=== PATIENT | female | born 1950 | race Caucasian/White ===

== ENCOUNTER → 2018-11-21 11:43 | Outpatient (CLI) | payer OTHER, SELFPAY ==
--- NOTE | 2018-11-21 | DI.MG.S_ITS ---
BILATERAL DIGITAL SCREENING MAMMOGRAM 3D/2D WITH CAD: 11/21/2018 CLINICAL: Routine screening. Family history of breast cancer. Comparison is made to exams dated: 07/29/2016 mammogram, 07/28/2015 mammogram - [facility], and 01/30/2004 mammogram - [facility]. The tissue of both breasts is heterogeneously dense. This may lower the sensitivity of mammography. Current study was also evaluated with a Computer Aided Detection (CAD) system. No significant masses, calcifications, or other findings are seen in either breast. There has been no significant interval change. IMPRESSION: NEGATIVE There is no mammographic evidence of malignancy. A 1 year screening mammogram is recommended. This exam was interpreted at Station ID: [id number]. NOTE: For mammograms, a report in lay terms will be sent to the patient. Approximately 15% of breast malignancies will not be visualized mammographically. In the management of a palpable breast mass, a negative mammogram must not discourage biopsy of a clinically suspicious lesion. Electronically Signed By: Norman marroquin/cathie:11/21/2018 13:42:48 letter sent: Normal Exam ACR BI-RADS Category 1: Negative [id number]
== END ==
PROVIDERS: Visit Provider Family Medicine
DX: Z12.31 Encounter for screening mammogram for malignant neoplasm of breast (principal); Z80.3 Family history of malignant neoplasm of breast
CPT/HCPCS: 77063; 77067

== ENCOUNTER → 2020-04-20 10:59 | Outpatient (CLI) | payer MEDICARE, OTHER, SELFPAY ==
--- NOTE | 2020-04-20 | DI.RAD.S_ITS ---
PROCEDURE: XR KNEE RT 3V INDICATIONS: RIGHT KNEE PAIN,HISTORY OF TOTAL RIGHT KNEE REPLACEMENT TECHNIQUE: 3 views of the knee were acquired. COMPARISON: [facility], , KNEE 1-2 VIEWS RIGHT, 11/01/2016, 17:15. FINDINGS: Bones: No fractures or dislocations. No suspicious bony lesions. Status post right knee arthroplasty. Expected postop alignment. The hardware appears intact. No evidence of hardware loosening. Soft tissues: No joint effusion. No suspicious soft tissue calcifications. IMPRESSION: Expected postoperative alignment Dictated by: Thiago Freeman M.D. on 04/20/2020 at 13:48 Approved by: Thiago Freeman M.D. on 04/20/2020 at 13:50
== END ==
PROVIDERS: Referring Provider Family Medicine; Visit Provider Family Medicine
DX: M25.561 Pain in right knee (principal); G89.29 Other chronic pain; Z96.651 Presence of right artificial knee joint
CPT/HCPCS: 73562

== ENCOUNTER → 2020-09-16 11:48 | Outpatient (CLI) | payer MEDICARE, OTHER, SELFPAY ==
--- NOTE | 2020-09-16 | DI.MG.S_ITS ---
BILATERAL DIGITAL SCREENING MAMMOGRAM 3D/2D WITH CAD: 09/16/2020 CLINICAL: Routine screening. Family history of breast cancer. Comparison is made to exams dated: 11/21/2018 mammogram, 08/18/2016 mammogram, 07/29/2016 mammogram, and 07/28/2015 mammogram - [facility]. The tissue of both breasts is heterogeneously dense. This may lower the sensitivity of mammography. Current study was also evaluated with a Computer Aided Detection (CAD) system. There are benign post operative findings in the right breast. No significant masses, calcifications, or other findings are seen in either breast. There has been no significant interval change. IMPRESSION: BENIGN There is no mammographic evidence of malignancy. A 1 year screening mammogram is recommended. This exam was interpreted at Station ID: [id number]. NOTE: For mammograms, a report in lay terms will be sent to the patient. Approximately 15% of breast malignancies will not be visualized mammographically. In the management of a palpable breast mass, a negative mammogram must not discourage biopsy of a clinically suspicious lesion. Electronically Signed By: Norman marroquin/cathie:09/16/2020 12:53:49 letter sent: Normal Exam ACR BI-RADS Category 2: Benign Finding(s) 3342F
--- NOTE | 2020-09-16 | DI.RAD.S_ITS ---
PROCEDURE: XR HIP W PEL IF DONE LT 2V INDICATIONS: LEFT HIP PAIN TECHNIQUE: AP pelvis with lateral view(s) of the left hip(s). COMPARISON: None. FINDINGS: Bones: No fractures or dislocations. Pelvic ring appears intact. No suspicious bony lesions. Soft tissues: The visualized bowel gas pattern is normal. No suspicious soft tissue calcifications. IMPRESSION: Mild asymmetric hip joint osteoarthritis, slightly greater on the left than the right. No trauma. Dictated by: Anthony Patel M.D. on 09/16/2020 at 14:16 Approved by: Anthony Patel M.D. on 09/16/2020 at 14:16
== END ==
PROVIDERS: PCP Family Medicine; Referring Provider Family Medicine; Visit Provider Family Medicine
DX: Z12.31 Encounter for screening mammogram for malignant neoplasm of breast (principal); Z80.3 Family history of malignant neoplasm of breast; M25.552 Pain in left hip; M16.0 Bilateral primary osteoarthritis of hip
CPT/HCPCS: 73502; 77063; 77067

== ENCOUNTER → 2021-02-24 14:03 | Outpatient (CLI) | payer MEDICARE, OTHER, SELFPAY ==
--- NOTE | 2021-02-24 | DI.US.S_ITS ---
PROCEDURE: US PELVIC COMPLETE INDICATIONS: Vaginal bleeding TECHNIQUE: Real-time scanning was performed of the pelvic organs, with image documentation. Additional endovaginal scanning was necessary due to incomplete visualization of the adnexal and endometrial structures by transabdominal scanning. COMPARISON: None. FINDINGS: Uterus: Uterus is normal in size at 4.4 x 3.5 x 4.1 cm. The endometrium measures 11 mm in combined thickness. Trace endometrial fluid. 2 subserosal fibroids, largest measuring 12 mm. Ovaries: Ovaries not identified. No adnexal masses seen. Other: No pathologic free abdominal or pelvic fluid. IMPRESSION: 1. Abnormal thickening of the endometrial complex. Endometrial neoplastic process cannot be excluded and endometrial biopsy is recommended. 2. Two subserosal fibroids. Dictated by: Luis Manuel [place] Interpreted: Clayton Erazo MD on 02/24/2021 at 16:30 Transcribed by: QUYEN on 02/24/2021 at 16:32 Approved by: Clayton Erazo M.D. on 02/24/2021 at 18:05
== END ==
PROVIDERS: PCP Family Medicine; Referring Provider Nurse Practitioner Family; Visit Provider Nurse Practitioner Family
DX: N93.9 Abnormal uterine and vaginal bleeding, unspecified (principal); D25.2 Subserosal leiomyoma of uterus; R93.89 Abnormal findings on diagnostic imaging of other specified body structures; M85.851 Other specified disorders of bone density and structure, right thigh; Z78.0 Asymptomatic menopausal state; E07.9 Disorder of thyroid, unspecified; Z51.81 Encounter for therapeutic drug level monitoring
CPT/HCPCS: 76830; 76856; 77080

== ENCOUNTER → 2021-04-13 09:13 | Outpatient (CLI) | payer MEDICARE, OTHER, SELFPAY ==
[2021-04-13 10:39] LABS: COVID19 -Nasal RAPID Negative (Negative)
== END ==
PROVIDERS: PCP Family Medicine; Visit Provider Obstetrics & Gynecology
DX: Z01.812 Encounter for preprocedural laboratory examination (principal); Z20.822 Contact with and (suspected) exposure to COVID-19
CPT/HCPCS: 87635

== ENCOUNTER 2021-04-13 09:50 | Day surgery (SDC) | payer MEDICARE, OTHER, SELFPAY ==
[2021-04-07 12:15] VITALS: BMI 25.3
--- NOTE | 2021-04-13 | PATH_ITS ---
[facility] Accession Number: [id number] . 01 Material submitted: . endometrium - ENDOMETRIAL CURETTINGS . 02 Diagnosis: Endometrium, Curettings: Scant superficial endometrial strips. No evidence of neoplasia or hyperplasia. MRV 04/15/2021 1240 Local . 02 Electronically signed: . Sharri Hernandez MD, Pathologist NPI- [id number] . 01 Gross description: . ENDOMETRIAL CURETTINGS: Received in formalin are multiple fragment(s) of waite, soft tissue measuring 2.5 x 1.1 x 0.4 cm in aggregate submitted entirely in 1 cassette(s) /JUAN 04/14/2021 0434 Local . 02 Pathologist provided ICD-10: N88.2 . 02 CPT . 659144 Performed at: 01 [facility] [address] [id number] MD Harry Barker MD Phone: [phone] Performed at: 02 [facility] [address] [place] [id number] MD Sharri Hernandez MD Phone: [phone]
[2021-04-13 10:35] VITALS: BP 140/72; PULSE 61; RESP 12; TEMP 36.1; O2SAT 100; BMI 25.3
[2021-04-13] MEDS: LACTATED RINGERS 1,000 ML 42 ML IV (10:45)
--- NOTE | 2021-04-13 12:51 | P.HP_ITS ---
History of Present Illness History of Present Illness Date Patient Seen: 04/13/21 Time Patient Seen: 12:51 Chief complaint: [facility] [place] Narrative: Patient is a 70-year-old 1 para 0 who presents for a D&C hysteroscopy with possible polypectomy versus fibroid resection due to postmenopausal bleeding and endometrial hyperplasia. Attempted endometrial biopsy in the office but due to cervical stenosis was unsuccessful. Patient History Surgical History (Updated 03/15/21 @ 18:05 by Danielle Bender MD) H/O tubal ligation History of total right knee replacement S/P appendectomy S/P T&A (status post tonsillectomy and adenoidectomy) Family & Social History Social History: household members none Tobacco & Substance use: Smoking Status Never smoker alcohol intake current alcohol intake frequency a few times a month Substance Use Type does not use Meds Home Medications and Allergies Home Medications Medication Instructions Recorded Confirmed Type lisinopril 2.5 mg tablet 2.5 mg PO QDAY #90 tab 06/13/16 04/07/21 Rx aspirin 81 mg tablet,delayed 81 mg PO BID #90 11/02/16 04/07/21 Rx release estradiol 0.5 mg tablet 0.5 mg PO DAILY 03/04/21 04/07/21 History levothyroxine 50 mcg tablet 75 mcg PO QAM tab 03/04/21 04/07/21 History Allergies Allergy/AdvReac Type Severity Reaction Status Date / Time No Known Drug Allergies Allergy Verified 04/13/21 08:13 Exam Vital Signs (past 8 hours): - 04/13/21 10:35 Temperature 97 F L Pulse Rate 61 Respiratory Rate 12 Blood Pressure 140/72 Pulse Oximetry 100 Oxygen Delivery Method Room Air Narrative Exam Narrative: HEENT: No thyromegaly, no anterior cervical or supraclavicular lymphadenopathy. Lungs:Clear to auscultation bilaterally, no wheezes. Cardiovascular: Regular rate and rhythm, no murmurs, rubs, or gallops. Abdomen: Well healed scars. No hepatosplenomegaly. No masses palpable. External genitalia: Normal Vagina: Normal Cervix: Nulliparous, stenotic Bimanual exam: 6 Week size uterus. Mobile. Assessment & Plan Assessment & Plan narrative: Assessment: 70 year old with postmenopausal bleeding, endometrial hyperplasia, and cervical stenosis Plan: D&C hysteroscopy with possible resection of mass The risks, benefits, and alternatives to the procedure were explained to the patient. The risks including bleeding, infection, and uterine perforation. She understands these risks and agrees to proceed. A full par Q was held and consent form was signed. COVID-19 COVID-19 status: Negative Result date/Date tested (Pos, Neg/Pending): 04/13/21 Time Spent With Patient Time with patient: less than 15 minutes
--- NOTE | 2021-04-13 13:00 | PM.PREOP ---
Pre-operative Note COVID-19 COVID-19 status: Negative Result date/Date tested (Pos, Neg/Pending): 04/13/21 Interval Note History & Physical reviewed/Exam performed by Physician: Yes Changes to H&P: No H&P completed within 30 days and has changed as indicated here:: 04/13/21
--- NOTE | 2021-04-13 13:29 | SUR.OPER ---
Lithotomy on padded OR bed, head on pillow, arms secured on padded arm boards at <90 degrees abduction. Legs secured in padded yellow fins stirrups.
--- NOTE | 2021-04-13 13:48 | P.OP_ITS ---
Operative Date/Time/Diagnoses Date of procedure: 04/13/21 Time of procedure: 13:48 Pre-op diagnosis: Postmenopausal bleeding Endometrial hyperplasia Cervical stenosis Post-op diagnosis: same Procedure & Clinicians Procedure: Procedures Operation Date: 04/13/21 11:45 Actual Procedure Side Surgeon p Hysteroscopy D&C Danielle Bender MD Indications: Postmenopausal bleeding Cervical stenosis Endometrial hyperplasia Surgeon: Danielle Bender Anesthesia Type: General (LMA) Operative Notes Findings: 7 week size anteverted uterus Both fallopian tube ostia observed No fibroids or polyps seen Stenotic cervix Closure Type: not applicable Specimen(s): endometrial curettings Estimated blood loss (mL): 5 Blood products transfused: none Procedure in detail: After informed consent was obtained, the patient was taken to the operating room where she was placed in the dorsal supine position. After adequate LMA general anesthesia was achieved, she was placed in the dorsal lithotomy position, and prepped and draped in the usual sterile fashion. A time-out was performed. A Lois speculum was placed into the vagina. A single-tooth tenaculum was placed on the anterior lip of the cervix. Using the gold handled dilators the cervix was sequentially dilated to the largest dilator which was # 5. Then the using the Hegar dilators the cervix was dilated to the # 8 Hegar dilator. The hysteroscope passed easily into the endometrial cavity. Both fallopian tube ostia were observed. There were no polyps were seen. Towards the left fallopian tube ostia there were some small whitened areas that might have been some submucosal fibroids. The hysteroscope was removed from the uterus. Sharp curettage was performed including the area of the left cornua. A large amount of curettings were obtained. The curette was removed from the [place] linda. The single-tooth tenaculum was removed from the anterior lip of the cervix. The speculum was removed from the vagina. Sponge, lap, and instrument counts were correct x2. The patient tolerated the procedure well, and was taken to PACU in stable condition. Complications: none Post-operative Condition: stable Disposition: PACU Plan for aftercare: Home after recovery
[2021-04-13 13:55] VITALS: BP 119/69; PULSE 45; RESP 12; TEMP 36.2; O2SAT 100
[2021-04-13 14:00] VITALS: BP 119/59; PULSE 44; RESP 14; O2SAT 100
[2021-04-13 14:05] VITALS: BP 126/64; PULSE 60; RESP 16; O2SAT 99
[2021-04-13 14:10] VITALS: BP 139/71; PULSE 59; RESP 14; TEMP 36.6; O2SAT 99
[2021-04-13] MEDS: ACETAMINOPHEN 325 MG TABLET 650 MG PO (14:38)
[2021-04-13 14:40] VITALS: BP 108/70; PULSE 69; RESP 16; TEMP 36.7; O2SAT 98
== END 2021-04-13 14:45 | disposition home or self-care (01) ==
PROVIDERS: PCP Family Medicine; Referring Provider Obstetrics & Gynecology; Visit Provider Obstetrics & Gynecology
PROC: 0UDB8ZZ Extraction of Endometrium, Via Natural or Artificial Opening Endoscopic (ICD-10-PCS; CPT 58558; principal; 2021-04-13 11:45)
DX: N88.2 Stricture and stenosis of cervix uteri (principal); Z01.812 Encounter for preprocedural laboratory examination; Z20.822 Contact with and (suspected) exposure to COVID-19
CPT/HCPCS: 58558; 87635; J1100; J1885; J2250; J2405; J2704; J3010

== ENCOUNTER → 2021-09-23 12:16 | Outpatient (CLI) | payer MEDICARE, OTHER, SELFPAY ==
--- NOTE | 2021-09-23 12:17 | DI.MRI.S_ITS ---
PROCEDURE: MR LUMBAR SPINE WO CON INDICATIONS: Low back pain, unspecified TECHNIQUE: Noncontrast sagittal T1 spin echo and T2 fast echo, sagittal STIR, axial T1 and T2 fast spin echo through the lumbar spine. In cases with scoliosis, additional coronal T2 fast spin echo may be performed. COMPARISON: None. FINDINGS: Image quality: Excellent. Alignment and Curvature: There is normal bony alignment. Bone Marrow: Marrow is of normal overall signal. No acute vertebral body compression fractures. Spinal Cord: Conus medullaris terminates at the L1 level. Visualized cord demonstrates normal signal and size. Paraspinous Soft Tissues: No paravertebral masses. T12-L1: Normal appearance. L1-L2: Moderate loss of disc height is seen. Loss of disc signal is seen. Mild to moderate disc bulge is seen. Mild to moderate facet hypertrophy is seen. There is moderate bilateral neural foraminal narrowing. Mild central canal narrowing is seen. L2-L3: At least moderate loss of disc height and disc signal can be seen. At least moderate disc bulge is seen. There is a superimposed central disc protrusion. Moderate facet joint hypertrophy is seen. There is at least moderate bilateral neural foraminal narrowing seen, left worse than right. There is a degree of compression seen upon exiting left L2 nerve root. At least moderate central canal narrowing is seen. L3-L4: The disc height is well-preserved. Loss of disc signal is seen at this level. Moderate generalized disc bulge is seen. At least moderate facet hypertrophy is seen. Associated hypertrophy of the ligamentum flavum can be seen. At least moderate bilateral neural foraminal narrowing can be seen. Moderate to prominent central canal narrowing is seen, as on series 5, image 19. L4-L5: Moderate loss of disc height is seen. Loss of disc signal is seen. Moderate generalized disc bulge is seen. There is a superimposed central disc protrusion. Moderate facet joint hypertrophy is seen. Moderate bilateral neural foraminal narrowing can be seen, left worse than right. At least moderate central canal narrowing is seen. L5-S1: The disc height is well-preserved. Loss of disc signal is seen at this level. Moderate generalized disc bulge is seen. There is a mild central disc protrusion seen. At least moderate facet hypertrophy can be seen at this level. Mild to moderate bilateral neural foraminal narrowing can be seen. Mild central canal narrowing is seen. IMPRESSION: Multiple levels of relatively prior lumbar spine degenerative change can be seen. Dictated by: Sergey Moreno M.D. on 09/23/2021 at 15:57 Approved by: Sergey Moreno M.D. on 09/23/2021 at 16:00
== END ==
PROVIDERS: PCP Family Medicine; Referring Provider Orthopaedic Surgery Orthopaedic Surgery of the Spine; Visit Provider Orthopaedic Surgery Orthopaedic Surgery of the Spine
DX: M47.816 Spondylosis without myelopathy or radiculopathy, lumbar region (principal); M47.817 Spondylosis without myelopathy or radiculopathy, lumbosacral region; M54.50 Low back pain, unspecified
CPT/HCPCS: 72148

== ENCOUNTER → 2021-10-07 09:40 | Outpatient (CLI) | payer MEDICARE, OTHER, SELFPAY ==
[2021-10-07 19:08] LABS: Add Manual Diff / Slide Review NO; Basophils Absolute Auto 0 /uL (0-100); Basophils Percent Auto 0.9 % (0-2); Eosinophils Absolute Auto 200 /uL (0-450); Eosinophils Percent Auto 2.9 % (2-4); Hematocrit 39.1 % (36-46); Hemoglobin 13.1 g/dL (12.0-16.0); Lymphocytes Absolute Auto 1600 /uL (1100-4500); Lymphocytes Percent Auto 29.9 % (25-40); Mean Corpuscular HGB Conc 33.6 % (30-36); Mean Corpuscular Hemoglobin 31.9 PG (26-34); Monocytes Absolute Auto 500 /uL (0-900); Monocytes Percent Auto 9.4 % (3-14); Neutrophils Absolute Auto 3000 /uL (1500-7000); Neutrophils Percent Auto 56.9 % (50-75); Platelet Count 291 X10^3/uL (150-400); Red Blood Cell Count 4.12 X10^6/uL (4.0-5.2); Red Cell Distribution Width 12.8 % (11.6-14.8); White Blood Cell Count 5.2 X10^3/uL (4.5-11.0)
[2021-10-07 19:11] LABS: Alanine Aminotransferase 15 IU/L (<35); Albumin Globulin Ratio 1.7 (1.0-2.8); Alkaline Phosphatase 66 U/L (38-126); Aspartate Aminotransferase 26 IU/L (14-36); BUN Creatinine Ratio 15.4 (6-22); Bilirubin Total 0.5 mg/dL (0.2-1.3); Blood Urea Nitrogen 12 mg/dL (7-17); Calcium 9.8 mg/dL (8.4-10.2); Carbon Dioxide 30 mmol/L (22-32); Chloride 106 mmol/L (98-107); Cholesterol 244 mg/dL (140-199); Estimated Glomerular Filt Rate > 60.0 mL/min (>60); Globulin 2.4 g/dL (1.7-4.1); Glucose 99 mg/dL (80-110); HDL Cholesterol 90 mg/dL (40-60); HEMOLYSIS < 15 (0-50); LDL Cholesterol Calculated 137 mg/dL (<100); Potassium 4.5 mmol/L (3.4-5.1); Sodium 140 mmol/L (137-145); Total Protein 6.4 g/dL (6.3-8.2); Triglycerides 87 mg/dL (35-150)
[2021-10-07 19:55] LABS: Vitamin B12 348 pg/mL (239-931)
== END ==
PROVIDERS: PCP Family Medicine; Visit Provider Physician Assistant
DX: E78.5 Hyperlipidemia, unspecified (principal); N95.0 Postmenopausal bleeding; E04.1 Nontoxic single thyroid nodule; E03.9 Hypothyroidism, unspecified; E53.8 Deficiency of other specified B group vitamins; I10 Essential (primary) hypertension; Z79.899 Other long term (current) drug therapy
CPT/HCPCS: 80053; 80061; 82607; 84443; 85025

== ENCOUNTER → 2021-12-27 10:17 | Outpatient (CLI) | payer MEDICARE, OTHER, SELFPAY ==
[2021-12-27 19:44] LABS: COVID19 - ORCAS (NP or Nasal) Negative (Negative)
== END ==
PROVIDERS: PCP Family Medicine; Visit Provider Family Medicine
DX: Z01.812 Encounter for preprocedural laboratory examination (principal); Z20.822 Contact with and (suspected) exposure to COVID-19
CPT/HCPCS: C9803; U0003

== ENCOUNTER → 2022-02-01 09:50 | Outpatient (CLI) | payer MEDICARE, OTHER, SELFPAY ==
[2022-02-01 18:25] LABS: Cholesterol 238 mg/dL (140-199); HDL Cholesterol 77 mg/dL (40-60); LDL Cholesterol Calculated 140 mg/dL (<100); Triglycerides 105 mg/dL (35-150)
== END ==
PROVIDERS: PCP Family Medicine; Visit Provider Physician Assistant
DX: E78.5 Hyperlipidemia, unspecified (principal)
CPT/HCPCS: 80061

== ENCOUNTER → 2022-05-11 12:58 | Outpatient (CLI) | payer MEDICARE, OTHER, SELFPAY ==
[2022-05-11 20:53] LABS: TSH w/ Reflex to FT4 1.62 uIU/mL (0.47-4.68)
== END ==
PROVIDERS: PCP Family Medicine; Visit Provider Family Medicine
DX: E03.9 Hypothyroidism, unspecified (principal); E04.1 Nontoxic single thyroid nodule
CPT/HCPCS: 84443

== ENCOUNTER → 2022-05-24 12:05 | Outpatient (CLI) | payer MEDICARE, OTHER, SELFPAY | PROVIDERS: PCP Family Medicine; Visit Provider Nurse Practitioner Adult Health | DX: N89.8 Other specified noninflammatory disorders of vagina (principal) | CPT/HCPCS: 87798; 87801 ==

== ENCOUNTER → 2022-10-06 10:53 | Outpatient (CLI) | payer MEDICARE, OTHER, SELFPAY ==
[2022-10-06 19:33] LABS: Alanine Aminotransferase 22 IU/L (<35); Albumin Globulin Ratio 1.6 (1.0-2.8); Alkaline Phosphatase 60 U/L (38-126); Aspartate Aminotransferase 28 IU/L (14-36); BUN Creatinine Ratio 14.3 (6-22); Bilirubin Total 0.5 mg/dL (0.2-1.3); Blood Urea Nitrogen 10 mg/dL (7-17); Carbon Dioxide 25 mmol/L (22-32); Chloride 103 mmol/L (98-107); Cholesterol 230 mg/dL (140-199); Estimated Glomerular Filt Rate > 60 mL/min (>60); Globulin 2.5 g/dL (1.7-4.1); Glucose 103 mg/dL (80-110); HDL Cholesterol 88 mg/dL (40-60); HEMOLYSIS < 15 (0-50); LDL Cholesterol Calculated 128 mg/dL (<100); Potassium 4.1 mmol/L (3.4-5.1); Sodium 136 mmol/L (137-145); Total Protein 6.5 g/dL (6.3-8.2); Triglycerides 68 mg/dL (35-150)
[2022-10-06 19:55] LABS: TSH w/ Reflex to FT4 1.03 uIU/mL (0.47-4.68)
== END ==
PROVIDERS: PCP Family Medicine; Visit Provider Physician Assistant
DX: E78.5 Hyperlipidemia, unspecified (principal); E03.9 Hypothyroidism, unspecified; Z79.899 Other long term (current) drug therapy
CPT/HCPCS: 80053; 80061; 84443

== ENCOUNTER → 2022-11-18 10:57 | Outpatient (CLI) | payer MEDICARE, OTHER, SELFPAY ==
--- NOTE | 2022-11-18 10:59 | DI.MRI.S_ITS ---
PROCEDURE: MR ANKLE LT WO CON INDICATIONS: Left Achilles pain; unable to stand on toes. L. ankle pain TECHNIQUE: Noncontrast sagittal T1 spin echo and T2 fast spin echo with fat saturation, axial proton density fast spin echo and T2 fast spin echo with fat saturation, coronal T1 spin echo and T2 fast spin echo with fat saturation through the ankle/hindfoot. COMPARISON: None. FINDINGS: Image quality: Excellent. Bones and joints: Significant marrow edema involving lateral malleolus and distal fibular shaft is seen. No discrete fracture line is identified. There are osteochondral injuries involving posterior and medial aspect of inferior talus adjacent to subtalar joint with surrounding marrow edema measures up to 1.1 x 0.7 cm in size. Smaller osteochondral injury involving superior and medial aspect of upper calcaneus adjacent to subtalar joint is also seen measures 6 mm in size and show surrounding edema. N there is also a tiny 3 mm osteochondral lesion involving medial aspect of talar dome weight-bearing portion. No significant joint effusions. Medial structures: The posterior tibialis, flexor digitorum longus, and flexor hallucis longus tendons are intact. The posterior tibial neurovascular bundle appears normal within the tarsal tunnel, without extrinsic mass effect. The deep fibers of deltoid ligament appears thickened with intrasubstance T2 hyperintense signal. The superficial fibers and the spring ligament is intact. Lateral structures: The anterior talofibular, calcaneofibular, and posterior talofibular ligaments appear mildly thickened. More superiorly, the anterior and posterior tibiofibular ligaments appear intact, as is the intermalleolar ligament. The tibiofibular syndesmosis is normal in width at 2 mm or less. The peroneus longus and brevis tendons are thickened at the level of lateral malleolus extending to the level of calcaneocuboid joint with moderate to large amount of fluid distending tendon sheath. Adjacent bony peroneal tubercle and retrotrochlear prominence are normal in size. The sinus tarsi demonstrates normal fatty signal, without edema, fibrosis, or cyst formation. Visualized sinus tarsi components (cervical ligament, interosseous talocalcaneal ligament, roots of the inferior extensor retinaculum) appear normal. The calcaneonavicular and calcaneocuboid components of the bifurcate ligament appear intact. The dorsal calcaneocuboid ligament appears intact. Anterior structures: The tibialis anterior, extensor hallucis longus, and extensor digitorum longus tendons appear intact. The dorsal talonavicular ligament appears intact. Posterior and plantar structures: Achilles tendon is intact. Medial and lateral bands of the plantar fascia are of normal thickness. No abductor digiti quinti muscle atrophy to suggest Cee neuropathy. IMPRESSION: 1. Bony contusion involving distal portion of fibular shaft and lateral malleolus without fracture line. 2. 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 Tiny osteochondral injury also seen in medial aspect of talar dome. 3. Moderate tenosynovitis involving peroneus tendons as above. Achilles tendon is intact. 4. Low-grade sprain/intrasubstance partial-thickness tear involving deep fibers of deltoid ligament. Low-grade sprain involving anterior and posterior talofibular ligaments and calcaneofibular ligament. Dictated by: Mac Bernardo M.D. on 11/18/2022 at 13:57 Approved by: Mac Bernardo M.D. on 11/18/2022 at 14:18
== END ==
PROVIDERS: PCP Family Medicine; Referring Provider Physician Assistant; Visit Provider Physician Assistant
DX: S93.492A Sprain of other ligament of left ankle, initial encounter (principal); M76.62 Achilles tendinitis, left leg; S80.12XA Contusion of left lower leg, initial encounter; M65.872 Other synovitis and tenosynovitis, left ankle and foot; S93.422A Sprain of deltoid ligament of left ankle, initial encounter
CPT/HCPCS: 73721

== ENCOUNTER → 2023-01-12 08:49 | Outpatient (CLI) | payer MEDICARE, OTHER, SELFPAY ==
--- NOTE | 2023-01-12 | DI.ECHO.S_ITS ---
[facility]---------+ [facility] +---------+ : : [address] : : : : [id number] : : : : Phone: [phone] Echocardiogram Report + + :Name: MARY ADAN Study Date: 01/12/2023 Height: 64 in : :[facility] ReadingLocation: Weight: 160 lb : : Gender: Female BSA: 1.8 m2 : :: 1950 Age: 72 yrs BP: 152/100 mmHg: :Reason For Study: SHORTNESS OF BREATH HR: 56 : :Ordering Physician: MARC, : :GLENIS Hernandez Performed By: FERMIN DELGADILLO : :Referring: GLENIS CASAS : + + Interpretation Summary The ejection fraction is estimated to be 60-65%. Diastolic parameters suggest probable normal left ventricular diastolic function and normal filling pressures. The right ventricle is normal in size and function. There is moderate mitral regurgitation. There is trace aortic regurgitation. Pulmonary artery pressures cannot be estimated because of the lack of a measurable TR jet velocity. There is a trivial pericardial effusion noted. Procedure: A two-dimensional transthoracic echocardiogram with color flow and Doppler was performed. The study quality was technically adequate. There is no prior echocardiogram noted for this patient. The patient had occasional PVCs during the exam. Left Ventricle: The left ventricle is normal in size and wall thickness. Left ventricular systolic function is normal. The ejection fraction is estimated to be 60-65%. Diastolic parameters suggest probable normal left ventricular diastolic function and normal filling pressures. Right Ventricle: The right ventricle is normal in size and function. Atria: The left atrial size is normal. Right atrial size is normal. There is no Doppler evidence for an interatrial shunt. Mitral Valve: The mitral valve is normal. There is moderate mitral regurgitation. Aortic Valve: The aortic valve is trileaflet. The aortic valve opens well. There is no aortic valve stenosis. There is trace aortic regurgitation. Tricuspid Valve: The tricuspid valve is normal in structure and function. There is trace tricuspid regurgitation. Pulmonary artery pressures cannot be estimated because of the lack of a measurable TR jet velocity. Pulmonic Valve: The pulmonic valve leaflets are thin and pliable; valve motion is normal. There is mild pulmonic regurgitation. Great Vessels: The aortic root is normal size. The ascending aorta is normal in size. The IVC is of normal diameter and collapses greater than 50% with a sniff. This suggests a low right atrial pressure of 3 mm Hg. Pericardium/ Pleura There is a trivial pericardial effusion noted. There is no pleural effusion. MMode/2D Measurements & Calculations LVIDd: 4.2 cm LVOT diam: 1.8 cm LVIDs: 2.9 cm Ao root diam: 3.3 cm FS: 31.0 % asc Aorta Diam: 2.9 cm IVSd: 0.80 cm LVPWd: 0.70 cm LV pozo. diameter/BSA (cm/m^2): 2.4 LV sys. diameter/BSA (cm/m^2): 1.6 LA A2 area: 16.7 cm2 RA long axis: 4.8 cm LA A4 area: 17.1 cm2 LA length (vol): 4.6 cm LA vol: 52.5 ml LA vol index: 29.5 ml/m2 LVLs ap4: 6.4 cm LVLd ap2: 8.0 cm LVLs ap2: 6.4 cm TAPSE_phl: 2.8 cm Doppler Measurements & Calculations Ao V2 max: 143.0 cm/sec LVOT Max Gelacio: 91.0 cm/sec Ao V2 mean: 98.4 cm/sec LV V1 max P.3 mmHg Ao max P.2 mmHg LV V1 VTI: 21.3 cm Ao mean P.0 mmHg JUAN(I,D): 1.7 cm2 Ao V2 VTI: 31.7 cm JUAN(V,D): 1.6 cm2 sev ratio: 0.67 JUAN indexed to BSA (cm^2/m^2): 0.96 AI P1/2t: 1040 msec AI dec slope: 100.0 cm/sec2 MV E max gelacio: 107.0 cm/sec PA V2 max: 100.0 cm/sec MV A max gelacio: 93.8 cm/sec PA V2 mean: 69.9 cm/sec MV E/A: 1.1 PA mean P.0 mmHg Med Peak E' Gelacio: 7.3 cm/sec PA pr(Accel): 25.0 mmHg E/E' med: 14.7 Lat Peak E' Gelacio: 8.2 cm/sec E/E' lat: 13.1 E/e' average: 13.9 MV dec time: 0.15 sec SV(LVOT): 54.2 ml AV P1/2t-pr_phl: 1040 msec AV VR_phl: 0.64 JUAN(VTI)/BSA_phl: 0.96 MV P1/2t-pr_phl: 44.0 msec Reading Physician:11:47 AM
--- NOTE | 2023-01-13 02:09 | DI.NM.S_ITS ---
DATE OF SERVICE: 01/12/2023 PROCEDURE PERFORMED: Exercise treadmill stress and rest myocardial perfusion imaging with gating to assess ejection fraction and regional wall motion. ORDERING PROVIDER: Glenis Casas M.D. INDICATIONS: The patient is a 72-year-old female with exertional dyspnea. CARDIAC STRESS: The patient was able to exercise for 4 minutes 8 seconds on a standard Roque protocol suggesting moderately reduced exercise capacity with an NIOCLASA of +23%, achieving 4.3 METs. She had an accelerated heart rate response to exercise with a resting rate of 99 bpm increasing to 118 bpm within 1 minute of exercise, 130 bpm within 3 minutes of excercise, and achieving a maximum heart rate of 138 bpm (94% of her predicted maximum). She had a normal blood pressure response and oxygen saturation at rest was 94% to 95% and remained >95% throughout exercise. The resting ECG is normal and there are no significant ST-segment shifts with exercise. She had occasional isolated PVCs but no complex ventricular ectopy. At 2 minutes, 15 seconds of exercise at a heart rate of 126 bpm, 26.3 millicuries of technetium-99m Myoview was injected and she was imaged 20 minutes later using a gated SPECT acquisition protocol. Earlier in the day while at rest, she had been injected with 12.1 millicuries of technetium-99m Myoview and was imaged 20 minutes later, again using a gated SPECT acquisition protocol. FINDINGS: 1. Raw data: There is fairly good myocardial tracer uptake although mild breast shadows are clearly noted which produce some attenuation. Lung/heart ratio is normal at 0.38 with a normal TID ratio of 0.81. 2. Quantitated gated SPECT: Post-stress ejection fraction is 72% without any focal wall motion abnormality and specifically the anterior wall has normal contractility. The resting ejection fraction is 76% with a normal resting end- diastolic volume of 79 mL. 3. Myocardial perfusion imaging: Post-stress supine images shows a fairly normal myocardial perfusion pattern although with a very subtle defect across the distal anterior wall in a pattern consistent with breast attenuation artifact supported by its complete resolution on the prone images. The resting images show an identical perfusion pattern without any areas of improvement. IMPRESSION: 1. Normal myocardial perfusion study. 2. Subtle, fixed anterior defect that resolves on prone imaging, consistent with breast attenuation artifact. There is no compelling evidence for myocardial ischemia or previous myocardial infarction. 3. Normal left ventricular systolic function without any focal wall motion abnormality. 4. Moderately reduced exercise capacity with an accelerated heart rate response to exercise, suggesting poor cardiovascular fitness. She had no angina or ECG evidence of ischemia and maintained oxygen saturation >95%. She had occasional PVCs but no complex ventricular ectopy. Martha Lemons - NIKOLE/naa/vanessa doc#: [id number]/job#: [id number] dd: 01/12/2023 16:57:00 dt: 01/13/2023 01:55:00 DICTATING MD/COPIES TO: Omari Bartlett MD; Glenis Casas M.D. COPIES MNE: NAVJOT;
== END ==
PROVIDERS: PCP Family Medicine; Referring Provider Internal Medicine Cardiovascular Disease; Visit Provider Internal Medicine Cardiovascular Disease
DX: R06.02 Shortness of breath (principal); I49.3 Ventricular premature depolarization; I34.0 Nonrheumatic mitral (valve) insufficiency; I35.1 Nonrheumatic aortic (valve) insufficiency; I31.39 Other pericardial effusion (noninflammatory)
CPT/HCPCS: 78452; 93017; 93306; A9502

== ENCOUNTER → 2023-08-10 16:45 | Outpatient (CLI) | payer MEDICARE, OTHER, SELFPAY ==
[2023-08-11 19:13] LABS: Influenza A - CEPHEID Flu A NEGATIVE (NEGATIVE); Influenza B - CEPHEID Flu B NEGATIVE (NEGATIVE); Respiratory Syncytial Virus Negative (Negative)
[2023-08-11 19:14] LABS: COVID-19 CEPHEID 4-PLEX PCR Negative (Negative)
== END ==
PROVIDERS: PCP Family Medicine; Visit Provider Family Medicine
DX: R50.9 Fever, unspecified (principal)
CPT/HCPCS: 0241U

== ENCOUNTER → 2023-09-26 10:06 | Outpatient (CLI) | payer MEDICARE, OTHER, SELFPAY ==
[2023-09-26 19:20] LABS: Add Manual Diff / Slide Review NO; Basophils Absolute Auto 0 /uL (0-100); Basophils Percent Auto 0.3 % (0-2); Eosinophils Absolute Auto 300 /uL (0-450); Eosinophils Percent Auto 4.5 % (2-4); Hematocrit 39.5 % (36-46); Hemoglobin 13.3 g/dL (12.0-16.0); Lymphocytes Absolute Auto 1800 /uL (1100-4500); Lymphocytes Percent Auto 29.6 % (25-40); Mean Corpuscular HGB Conc 33.7 % (30-36); Mean Corpuscular Hemoglobin 31.3 PG (26-34); Mean Corpuscular Volume 92.9 fL (80-100); Monocytes Absolute Auto 600 /uL (0-900); Monocytes Percent Auto 10.3 % (3-14); Neutrophils Absolute Auto 3300 /uL (1500-7000); Neutrophils Percent Auto 55.3 % (50-75); Platelet Count 283 X10^3/uL (150-400); Red Blood Cell Count 4.25 X10^6/uL (4.0-5.2); White Blood Cell Count 6.1 X10^3/uL (4.5-11.0)
[2023-09-26 19:23] LABS: Alanine Aminotransferase 18 IU/L (<35); Albumin 4.1 g/dL (3.5-5.0); Albumin Globulin Ratio 1.5 (1.0-2.8); Alkaline Phosphatase 64 U/L (38-126); Aspartate Aminotransferase 28 IU/L (14-36); BUN Creatinine Ratio 19.4 (6-22); Bilirubin Total 0.6 mg/dL (0.2-1.3); Blood Urea Nitrogen 13 mg/dL (7-17); Calcium 9.6 mg/dL (8.4-10.2); Carbon Dioxide 25 mmol/L (22-32); Chloride 105 mmol/L (98-107); Cholesterol 162 mg/dL (140-199); Estimated Glomerular Filt Rate > 60 mL/min (>60); Globulin 2.7 g/dL (1.7-4.1); Glucose 101 mg/dL (80-110); HDL Cholesterol 87 mg/dL (40-60); HEMOLYSIS < 15 (0-50); LDL Cholesterol Calculated 58 mg/dL (<100); Potassium 4.3 mmol/L (3.4-5.1); Sodium 140 mmol/L (137-145); Total Protein 6.8 g/dL (6.3-8.2); Triglycerides 84 mg/dL (35-150)
[2023-09-26 20:04] LABS: Free T4, Direct Thyroxine 1.08 ng/dL (0.78-2.19)
[2023-09-26 20:18] LABS: Thyroid Stimulating Hormone 4.39 uIU/mL (0.47-4.68)
== END ==
PROVIDERS: PCP Family Medicine; Visit Provider Physician Assistant
DX: I10 Essential (primary) hypertension (principal); E78.5 Hyperlipidemia, unspecified; E03.9 Hypothyroidism, unspecified; E78.00 Pure hypercholesterolemia, unspecified
CPT/HCPCS: 80053; 80061; 84439; 84443; 85025

== ENCOUNTER → 2023-11-27 07:00 | Outpatient (CLI) | payer MEDICARE, OTHER, SELFPAY ==
[2023-11-29 19:37] LABS: Fecal Immunochemical Test Negative (Negative)
== END ==
PROVIDERS: PCP Family Medicine; Visit Provider Family Medicine
DX: Z12.11 Encounter for screening for malignant neoplasm of colon (principal)
CPT/HCPCS: 82274

== ENCOUNTER → 2024-01-18 10:16 | Outpatient (CLI) | payer MEDICARE, OTHER, SELFPAY ==
[2024-01-18 21:47] LABS: Add Manual Diff / Slide Review NO; Basophils Absolute Auto 0 /uL (0-100); Basophils Percent Auto 0.3 % (0-2); Eosinophils Absolute Auto 200 /uL (0-450); Eosinophils Percent Auto 2.9 % (2-4); Hematocrit 40.3 % (36-46); Hemoglobin 13.4 g/dL (12.0-16.0); Lymphocytes Absolute Auto 1900 /uL (1100-4500); Lymphocytes Percent Auto 36.8 % (25-40); Mean Corpuscular HGB Conc 33.2 % (30-36); Mean Corpuscular Hemoglobin 31.5 PG (26-34); Monocytes Absolute Auto 600 /uL (0-900); Monocytes Percent Auto 11.1 % (3-14); Neutrophils Absolute Auto 2600 /uL (1500-7000); Neutrophils Percent Auto 48.9 % (50-75); Platelet Count 313 X10^3/uL (150-400); Red Blood Cell Count 4.25 X10^6/uL (4.0-5.2); White Blood Cell Count 5.2 X10^3/uL (4.5-11.0)
[2024-01-18 22:06] LABS: Alanine Aminotransferase 17 IU/L (<35); Albumin 4.1 g/dL (3.5-5.0); Albumin Globulin Ratio 1.6 (1.0-2.8); Alkaline Phosphatase 58 U/L (38-126); Aspartate Aminotransferase 29 IU/L (14-36); BUN Creatinine Ratio 16.9 (6-22); Bilirubin Total 0.6 mg/dL (0.2-1.3); Blood Urea Nitrogen 13 mg/dL (7-17); Calcium 9.6 mg/dL (8.4-10.2); Carbon Dioxide 27 mmol/L (22-32); Chloride 105 mmol/L (98-107); Cholesterol 167 mg/dL (140-199); Estimated Glomerular Filt Rate > 60 mL/min (>60); Globulin 2.5 g/dL (1.7-4.1); Glucose 96 mg/dL (80-110); HDL Cholesterol 84 mg/dL (40-60); HEMOLYSIS < 15 (0-50); LDL Cholesterol Calculated 66 mg/dL (<100); Potassium 4.5 mmol/L (3.4-5.1); Sodium 139 mmol/L (137-145); Total Protein 6.6 g/dL (6.3-8.2); Triglycerides 83 mg/dL (35-150)
[2024-01-18 22:53] LABS: Hep C Virus Ab w/Reflex Quant NEGATIVE s/c (NEGATIVE)
[2024-01-18 23:08] LABS: TSH w/ Reflex to FT4 2.89 uIU/mL (0.47-4.68)
== END ==
PROVIDERS: PCP Family Medicine; Visit Provider Physician Assistant
DX: Z11.59 Encounter for screening for other viral diseases (principal); R41.3 Other amnesia; E03.9 Hypothyroidism, unspecified; E78.00 Pure hypercholesterolemia, unspecified; Z79.899 Other long term (current) drug therapy
CPT/HCPCS: 80053; 80061; 84443; 85025; 86803

== ENCOUNTER → 2024-02-26 11:50 | Outpatient (CLI) | payer MEDICARE, OTHER, SELFPAY ==
[2024-02-26 19:46] LABS: BUN Creatinine Ratio 14.8 (6-22); Blood Urea Nitrogen 12 mg/dL (7-17); Calcium 9.5 mg/dL (8.4-10.2); Carbon Dioxide 27 mmol/L (22-32); Chloride 104 mmol/L (98-107); Estimated Glomerular Filt Rate > 60 mL/min (>60); Glucose 92 mg/dL (80-110); HEMOLYSIS 16 (0-50); Potassium 4.5 mmol/L (3.4-5.1); Sodium 135 mmol/L (137-145)
== END ==
PROVIDERS: Internal Medicine Cardiovascular Disease; PCP Family Medicine
DX: Z79.899 Other long term (current) drug therapy (principal)
CPT/HCPCS: 80048

== ENCOUNTER → 2024-07-31 14:27 | Outpatient (CLI) | payer MEDICARE, OTHER, SELFPAY ==
--- NOTE | 2024-07-31 14:28 | DI.MG.S_ITS ---
BILATERAL DIGITAL SCREENING MAMMOGRAM 3D/2D WITH CAD: 07/31/2024 CLINICAL: Routine screening. Family history of breast cancer. Comparison is made to exams dated: 09/16/2020 mammogram, 11/21/2018 mammogram, and 07/29/2016 mammogram - [facility]. The breasts are heterogeneously dense, which may obscure small masses (category c / 51-75% glandular tissue). Current study was also evaluated with a Computer Aided Detection (CAD) system. There are benign post operative findings in the right breast. No significant masses, calcifications, or other findings are seen in either breast. There has been no significant interval change. IMPRESSION: BENIGN There is no mammographic evidence of malignancy. A 1 year screening mammogram is recommended. Based on the Tyrer Cuzick model (a risk assessment model) the patient's lifetime risk is 11.2% and her 10 year risk is 11.2%. According to the ACR, ACS, and NCCN guidelines, an annual breast MRI exam along with mammogram is recommended if the patient's lifetime risk is 20% or greater. This exam was interpreted at Station ID: [id number]. NOTE: For mammograms, a report in lay terms will be sent to the patient. Approximately 15% of breast malignancies will not be visualized mammographically. In the management of a palpable breast mass, a negative mammogram must not discourage biopsy of a clinically suspicious lesion. Electronically Signed By: Sherly gresham/cathie:07/31/2024 17:10:55 letter sent: Normal Exam ACR BI-RADS Category 2: Benign
--- NOTE | 2024-07-31 14:28 | DI.MRI.S_ITS ---
PROCEDURE: MR HIP LT WO CON INDICATIONS: Worsening left hip pain TECHNIQUE: Noncontrast coronal T1 spin echo and STIR through the bony pelvis. Coronal and axial T2 fast spin echo with fat saturation, sagittal T1 spin echo, and oblique axial T2 fast spin echo with fat saturation through the hip. COMPARISON: [facility] ([facility]), CR, XR HIP W PEL IF DONE LT 2V, 07/22/2024, 12:26. FINDINGS: Image quality: Excellent. Bones and joints: Degenerative changes of the lower lumbar spine. Mild fibrovascular end plate change at L4-5. The sacrum is intact. Bilateral sacroiliac joints are unremarkable. No acute fracture or dislocation of either hip. No avascular necrosis of either femoral head. Mild degenerative changes of the right hip. Moderate degenerative changes of the left hip with moderate subchondral cystic changes and marrow edema of the anterior acetabulum. Tendons and ligaments: The left iliopsoas, adductor, and hamstring tendons are unremarkable. Full-thickness , partial width tear of the left gluteal minimus at the greater tuberosity insertion, with small amount of intact fibers superiorly. The left gluteal medius tendon is unremarkable. Labrum and cartilage: Circumferential labral tear with 3 mm paralabral cysts about the anterior superior labrum. Soft tissues: Sigmoid colon diverticulosis. IMPRESSION: 1. Moderate degenerative changes of the left hip. Circumferential labral tear of the left hip with small paralabral cyst. 2. Full-thickness, partial width tear of the left gluteal minimus with small amount of intact fibers superiorly. Dictated by: Shima Abbott M.D. on 08/01/2024 at 10:18 Approved by: Shima Abbott M.D. on 08/01/2024 at 10:26
== END ==
PROVIDERS: PCP Family Medicine; Referring Provider Physician Assistant; Visit Provider Physician Assistant
DX: Z12.31 Encounter for screening mammogram for malignant neoplasm of breast (principal); Z80.3 Family history of malignant neoplasm of breast; R92.333 Mammographic heterogeneous density, bilateral breasts; S76.012A Strain of muscle, fascia and tendon of left hip, initial encounter; M16.12 Unilateral primary osteoarthritis, left hip; M25.552 Pain in left hip; M24.852 Other specific joint derangements of left hip, not elsewhere classified
CPT/HCPCS: 73721; 77063; 77067

== ENCOUNTER → 2024-12-10 10:01 | Outpatient (CLI) | payer MEDICARE, OTHER, SELFPAY ==
[2024-12-10 18:50] LABS: Add Manual Diff / Slide Review NO; Basophils Absolute Auto 0 /uL (0-100); Basophils Percent Auto 0.2 % (0-2); Eosinophils Absolute Auto 200 /uL (0-450); Eosinophils Percent Auto 3.6 % (2-4); Hematocrit 40.2 % (36-46); Hemoglobin 13.5 g/dL (12.0-16.0); Lymphocytes Absolute Auto 1800 /uL (1100-4500); Lymphocytes Percent Auto 27.3 % (25-40); Mean Corpuscular HGB Conc 33.5 % (30-36); Mean Corpuscular Volume 95.3 fL (80-100); Monocytes Absolute Auto 700 /uL (0-900); Monocytes Percent Auto 10.2 % (3-14); Neutrophils Absolute Auto 3800 /uL (1500-7000); Neutrophils Percent Auto 58.7 % (50-75); Platelet Count 359 X10^3/uL (150-400); Red Blood Cell Count 4.22 X10^6/uL (4.0-5.2); Red Cell Distribution Width 12.9 % (11.6-14.8); White Blood Cell Count 6.4 X10^3/uL (4.5-11.0)
[2024-12-10 19:11] LABS: BUN Creatinine Ratio 20.3 (6-22); Blood Urea Nitrogen 15 mg/dL (7-17); Calcium 9.4 mg/dL (8.4-10.2); Carbon Dioxide 24 mmol/L (22-32); Chloride 107 mmol/L (98-107); Cholesterol 156 mg/dL (140-199); Estimated Glomerular Filt Rate > 60 mL/min (>60); Glucose 105 mg/dL (80-110); HDL Cholesterol 60 mg/dL (40-60); HEMOLYSIS 25 (0-50); LDL Cholesterol Calculated 75 mg/dL (<100); Potassium 4.4 mmol/L (3.4-5.1); Sodium 139 mmol/L (137-145); Triglycerides 106 mg/dL (35-150)
[2024-12-10 19:36] LABS: TSH w/ Reflex to FT4 2.12 uIU/mL (0.47-4.68)
== END ==
PROVIDERS: PCP Family Medicine; Visit Provider Family Medicine
DX: E78.00 Pure hypercholesterolemia, unspecified (principal); R41.89 Other symptoms and signs involving cognitive functions and awareness; I10 Essential (primary) hypertension; K52.9 Noninfective gastroenteritis and colitis, unspecified; E03.9 Hypothyroidism, unspecified
CPT/HCPCS: 80048; 80061; 84443; 85025

== ENCOUNTER → 2024-12-27 11:14 | Outpatient (CLI) | payer MEDICARE, OTHER, SELFPAY ==
--- NOTE | 2024-12-27 11:15 | DI.RAD.S_ITS ---
PROCEDURE: XR DEXA AXIAL SKELETON INDICATIONS: menopause and osteoporosis COMPARISON: [facility], CR, XR DEXA AXIAL SKELETON, 02/24/2021, 14:47. FINDINGS: Lumbar Spine: Bone mineral density 1.083 (previously 1.184) g/cm2, T score 0.3 (previously -0.1). Left Femoral Neck: Bone mineral density 0.760 (previously 0.742) g/cm2, T score -0.8 (previously -2.1). Left Hip: Bone mineral density 0.817 (previously 0.812) g/cm2, T score -1.0 (previously -1.6). Fracture Risk Calculation (when applicable): 10-year fracture risk of a major osteoporotic fracture 9.3 percent and of a hip fracture 1.3 percent. (T score greater or equal to -1.0 to: NORMAL) (T score from -1.1 to -2.4: OSTEOPENIA) (T score less than or equal to -2.5: OSTEOPOROSIS) IMPRESSION: Normal--- recommend repeat DEXA as clinically indicated. Follow-up guidelines as follows: Osteoporosis: Consider a repeat DEXA and Vertebral Fracture Assessment (VFA) exam in 2 years or sooner if medically necessary, to reassess this patient's status. Osteopenia: Consider a repeat DEXA in 2-3 years to reassess this patient's status, or if there is a new clinical indication. Normal: Consider a repeat DEXA in 5 years or sooner, or if there is a new clinical indication. All treatment decisions require clinical judgment and consideration of individual patient factors, including patient preferences, comorbidities, previous drug use, risk factors not captured in the FRAX model (e.g., frailty, falls, vitamin D deficiency, increased bone turnover, interval significant decline in bone density ) and possible under- or over-estimation of fracture risk by FRAX. In addition, the NOF Guide recommends that FDA-approved medical therapies be considered in postmenopausal women and men age >= 50 years with a: * Hip or vertebral (clinical or morphometric) fracture * T-score of <=-2.5 at the spine or hip * Ten-year fracture probability by FRAX of >= 3% for hip fracture or >=20% for major osteoporotic fracture. Dictated by: Herbert York M.D. on 12/27/2024 at 19:58 Approved by: Herbert York M.D. on 12/27/2024 at 20:06
== END ==
PROVIDERS: PCP Family Medicine; Referring Provider Family Medicine; Visit Provider Family Medicine
DX: Z78.0 Asymptomatic menopausal state (principal); M85.80 Other specified disorders of bone density and structure, unspecified site
CPT/HCPCS: 77080

== ENCOUNTER → 2024-12-27 11:16 | Outpatient (CLI) | payer MEDICARE, OTHER, SELFPAY ==
--- NOTE | 2024-12-27 11:17 | DI.ECHO.S_ITS ---
[facility] : : [address] [place] : : [id number] : : Phone: [phone] Echocardiogram Report + + :Name: MARY ADAN Study Date: 12/27/2024 Height: 64 in : :[facility] ReadingLocation: Weight: 165 lb : : Gender: Female BSA: 1.8 m2 : :: 1950 Age: 74 yrs BP: 169/83 mmHg: :Reason For Study: MITRAL VALVE REGURGITATION : :Ordering Physician: MARC, : :GLENIS Hernandez Performed By: Mak Ivan : :Referring: GLENIS CASAS : + + Interpretation Summary The ejection fraction is estimated to be 60-65%. Diastolic parameters suggest probable normal left ventricular diastolic function and normal filling pressures. The right ventricle is normal in size and function. There is borderline mitral valve prolapse. There is mild mitral regurgitation. There is mild aortic regurgitation. Pulmonary artery pressures cannot be estimated because of the lack of a measurable TR jet velocity but the IVC suggests a CVP of around 3 mmHg. Compared to the prior study 01/12/2023, the mitral regurgitation has decreased. Procedure: A two-dimensional transthoracic echocardiogram with color flow and Doppler was performed. The study quality was technically good. Comparison is made with the echocardiogram of 01/12/2023. The patient was in normal sinus rhythm during the exam. Left Ventricle: The left ventricle is normal in size. There is normal left ventricular wall thickness. There is no ventricular septal defect visualized. The ejection fraction is estimated to be 60-65%. There are no focal wall motion abnormalities. Diastolic parameters suggest probable normal left ventricular diastolic function and normal filling pressures. Right Ventricle: The right ventricle is normal in size and function. Atria: The left atrial size is normal. Right atrial size is normal. There is no Doppler evidence for an interatrial shunt. Mitral Valve: There is borderline mitral valve prolapse. There is mild mitral regurgitation. Aortic Valve: The aortic valve is trileaflet. The aortic valve opens well. There is no aortic valve stenosis. There is mild aortic regurgitation. Tricuspid Valve: The tricuspid valve leaflets are thin and pliable. There is a trace or physiologic amount of tricuspid regurgitation. Pulmonary artery pressures cannot be estimated because of the lack of a measurable TR jet velocity but the IVC suggests a CVP of around 3 mmHg. Pulmonic Valve: The pulmonic valve leaflets are thin and pliable; valve motion is normal. There is trace pulmonic regurgitation. Great Vessels: The aortic root is normal size. The dimensions of the ascending aorta are normal. The pulmonary artery is normal size. The IVC is of normal diameter and collapses greater than 50% with a sniff. This suggests a low right atrial pressure of 3 mm Hg. Pericardium/ Pleura There is no pericardial effusion. There is no pleural effusion. MMode/2D Measurements & Calculations LVIDd: 4.0 cm LVOT diam: 1.8 cm LVIDs: 3.1 cm Ao root diam: 3.1 cm FS: 23.5 % asc Aorta Diam: 3.5 cm EPSS: 0.38 cm Ao Arch Diam (Prox Trans): 1.7 cm IVSd: 0.93 cm LVPWd: 0.82 cm LV pozo. diameter/BSA (cm/m^2): 2.2 LV sys. diameter/BSA (cm/m^2): 1.7 LA A2 area: 17.6 cm2 RA long axis: 4.6 cm LA A4 area: 18.4 cm2 RA area: 11.9 cm2 LA length (vol): 5.0 cm RA vol: 26.2 ml LA vol: 54.9 ml RA : 14.6 ml/m2 LA vol index: 30.5 ml/m2 IVC diam: 1.0 cm RVD1 (basal): 3.5 cm RVD2 (mid): 3.0 cm TAPSE: 2.5 cm Doppler Measurements & Calculations Ao V2 max: 168.1 cm/sec LVOT Max Gelacio: 112.5 cm/sec Ao V2 mean: 104.5 cm/sec LV V1 max P.1 mmHg Ao max P.3 mmHg LV V1 VTI: 24.0 cm Ao mean P.1 mmHg JUAN(I,D): 1.8 cm2 Ao V2 VTI: 33.4 cm JUAN(V,D): 1.7 cm2 sev ratio: 0.72 JUAN indexed to BSA (cm^2/m^2): 1.00 MV E max gelacio: 97.2 cm/sec PA V2 max: 112.1 cm/sec MV A max gelacio: 89.0 cm/sec PA V2 mean: 72.3 cm/sec MV E/A: 1.1 PA mean P.4 mmHg Med Peak E' Gelacio: 7.0 cm/sec PA pr(Accel): 49.9 mmHg E/E' med: 13.8 Lat Peak E' Gelacio: 7.9 cm/sec E/E' lat: 12.2 E/e' average: 13.0 MV dec time: 0.21 sec SV(OT): 60.2 ml Reading Physician:03:08 PM
== END ==
PROVIDERS: PCP Family Medicine; Referring Provider Internal Medicine Cardiovascular Disease; Visit Provider Internal Medicine Cardiovascular Disease
DX: I08.0 Rheumatic disorders of both mitral and aortic valves (principal); M85.80 Other specified disorders of bone density and structure, unspecified site; Z78.0 Asymptomatic menopausal state
CPT/HCPCS: 77080; 93306

== ENCOUNTER → 2025-03-12 15:55 | Outpatient (CLI) | payer MEDICARE, OTHER, SELFPAY ==
--- NOTE | 2025-03-12 16:00 | EKG_ITS ---
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
[2025-03-12 17:38] LABS: Add Manual Diff / Slide Review NO; Hematocrit 39.9 % (36-46); Hemoglobin 13.4 g/dL (12.0-16.0); Lymphocytes Absolute Auto 2400 /uL (1100-4500); Mean Corpuscular HGB Conc 33.7 % (30-36); Mean Corpuscular Hemoglobin 31.9 PG (26-34); Mean Corpuscular Volume 94.6 fL (80-100); Platelet Count 284 X10^3/uL (150-400)
[2025-03-12 17:49] LABS: Appearance Urine UA CLEAR; Bilirubin Urine UA NEGATIVE (NEGATIVE); Color Urine UA YELLOW; Glucose Urine UA NEGATIVE (Negative); Ketones Urine UA TRACE (NEGATIVE); Leukocyte Esterase Urine UA NEGATIVE (NEGATIVE); Nitrite Urine UA NEGATIVE (Negative); Occult Blood Urine UA NEGATIVE (Negative); Protein Urine UA NEGATIVE (Negative); Specific Gravity Urine UA 1.025 (1.000-1.035); Urobilinogen Urine UA 0.2 E.U./dL (0.2)
[2025-03-12 17:53] LABS: pH Urine UA 5.5 (4.5-8.0)
[2025-03-12 17:56] LABS: Culture Indicated Urine Cult Not Indicated
[2025-03-12 18:01] LABS: Hemoglobin A1C% w Est Avg Glu 5.4 % (4.0-6.0)
[2025-03-12 18:03] LABS: Blood Urea Nitrogen 10 mg/dL (7-17); Calcium 10.2 mg/dL (8.4-10.2); Carbon Dioxide 23 mmol/L (22-32); Chloride 106 mmol/L (98-107); Estimated Glomerular Filt Rate > 60 mL/min (>60); Glucose 90 mg/dL (70-99); HEMOLYSIS < 15 (0-50); Potassium 4.5 mmol/L (3.4-5.1); Sodium 140 mmol/L (137-145)
== END ==
PROVIDERS: PCP Family Medicine; Referring Provider Orthopaedic Surgery; Visit Provider Orthopaedic Surgery
DX: Z01.812 Encounter for preprocedural laboratory examination (principal); Z01.818 Encounter for other preprocedural examination; N39.0 Urinary tract infection, site not specified; R73.9 Hyperglycemia, unspecified
CPT/HCPCS: 36415; 80048; 81001; 83036; 85025; 93005

== ENCOUNTER 2025-05-20 08:07 | Day surgery (SDC) | payer MEDICARE, OTHER, SELFPAY ==
[2025-05-12 09:37] VITALS: BMI 29.2
[2025-05-20] VITALS (10 sets, daily range): BP systolic 123–149; BP diastolic 60–79; PULSE 66–91; RESP 15–18; TEMP 36–36.8; O2SAT 95–98; BMI 29.2
--- NOTE | 2025-05-20 | DI.RAD.S_ITS ---
PROCEDURE: XR HIP W PEL LT 2V COMPARISON: [facility] ([facility]), CR, XR HIP W PEL IF DONE LT 2V, 07/22/2024, 12:26. [facility], CR, XR HIP W PEL IF DONE LT 2V, 09/16/2020, 12:10. INDICATIONS: TOTAL LEFT HIP arthroplasty Technique: 4 intraoperative radiographs of the left hip FINDINGS: See impression IMPRESSION: Intraoperative radiographs row septic completion of the left total hip arthroplasty. No acute periprosthetic fracture. Dictated by: Bull Dong M.D. on 05/20/2025 at 16:33 Approved by: Bull Dong M.D. on 05/20/2025 at 16:33
--- NOTE | 2025-05-20 06:00 | DI.RAD.S_ITS ---
PROCEDURE: XR HIP W PEL IF DONE LT 2V INDICATIONS: HORACE TECHNIQUE: AP pelvis and lateral view of the hip acquired. COMPARISON: [facility] ([facility]), VERÓNICA, XR HIP W PEL IF DONE LT 2V, 07/22/2024, 12:26. FINDINGS: Bones: Patient is status post left hip arthroplasty, with hardware components in expected positions. The hip joint appears congruent. The visualized bony structures appear intact. Soft tissues: Overlying postoperative changes are noted. No suspicious soft tissue densities. IMPRESSION: Expected post-operative appearance of a hip arthroplasty. Dictated by: Mac Bernardo M.D. on 05/20/2025 at 16:50 Approved by: Mac Bernardo M.D. on 05/20/2025 at 16:50
[2025-05-20] MEDS: ACETAMINOPHEN 325 MG TABLET 975 MG PO (08:43)
[2025-05-20] MEDS: CELECOXIB 200 MG CAPSULE PO (08:44)
[2025-05-20] MEDS: LACTATED RINGERS 1,000 ML 42 ML IV (08:45)
[2025-05-20] MEDS: VANCOMYCIN 1,000 MG/200 ML PIGGYBACK 200 MG IV (09:49)
--- NOTE | 2025-05-20 10:09 | PM.PREOP ---
Pre-operative Note Interval Note History & Physical reviewed/Exam performed by Physician: Yes Changes to H&P: No
--- NOTE | 2025-05-20 10:10 | P.OP_ITS ---
Operative Date/Time/Diagnoses Date of procedure: 05/20/25 Time of procedure: 11:00 Pre-op diagnosis: left hip OA Post-op diagnosis: same Procedure & Clinicians Procedure: Left total hip arthroplasty anterior approach Same procedure(s) as scheduled: Yes Indications: The patient has had progressively worsening left hip pain with radiographic c hanges consistent with arthritis. Non-operative management has failed and the patient has requested total hip replacement. The risks, benefits and alternatives to surgery were discussed with the patient prior to proceeding. Risks discussed included, but were not limited to, failure to relieve pain, leg length discrepancy, dislocation, stiffness, infection, nerve damage, deep venous thrombosis, pulmonary embolism, stroke, coma, heart attack, permanent paralysis and , as well as the potential need for eventual revision of the prosthetic. Surgeon: Julieta Parrish Assisted?: Yes Supervisor Warping Department: Harman Vega Anesthesia Type: General and Spinal Operative Notes Findings: Severe left hip OA, adequate bone, adequate stability Closure Type: primary Specimen(s): none sent Prosthetic devices, grafts, tissues, transplants, or devices: Parrish and nephew R3 50, neutral poly liner, two 6.5 mm screws, polar stem standard offset size 2, 36 by +0 COCh Applied: none Estimated Blood Loss (mL): 250 Blood products transfused: none Procedure in detail: The patient was brought to the operating room. Patient was carefully positioned in the supine position. Time-out was performed and antibiotics were given. Anesthesia was induced. She was positioned in the on the table in order to allow hyperextension of the hip. The left lower extremity was prepped and draped in a standard sterile fashion. An anterior left hip incision was made 1 fingerbreadth lateral to the anterior superior iliac spine and extended distally towards the greater trochanter. Dissection was carried out through skin and subcutaneous tissues. Superficial hemostasis was achieved. The fascia over the tensor fascia alina was defined and incised with a knife. Two Allis clamps were used to grasp the fascia. Tensor fascia alina was retracted laterally. A gelpi retractor was placed. Dissection was carried out down along the neck. The circumflex vessels were carefully identified and cauterized with the Aqua Mantis. A PA was used during the procedure and was essential for intraoperative retraction and safe implantation of the components. There was good visualization of the femoral neck. A Cobra was placed superior to the neck and the gluteus fibers were carefully stripped from that superior aspect of the capsule. A 2nd retractor was placed along the inferior aspect of the neck. The rectus insertion along the capsule was partially released. A 3rd retractor that was then gently placed over the rim of the acetabulum under the rectus. Capsule was carefully incised and released from the intertrochanteric line circumferentially superior to the mid sagittal line and inferiorly to the mid sagittal line until the lesser trochanter was palpable. A tag stitch was placed both in the superior and inferior limb of the capsular insertion. Along the acetabulum capsule was also released up to the mid sagittal 12:00 position. A portion of the labrum was resected. A saw was used to perform an osteotomy at the level of the intertrochanteric line and the junction of the superior femoral neck leaving approximately 1 finger breath of residual inferior neck above the lesser trochanter. A 2nd cut was made along the femoral neck at the base of the head and a napkin ring of neck was removed. Corkscrew was placed in the femoral head and the head was removed without difficulty. Retractors were then repositioned around the acetabulum. Residual labrum was resected and additional osteophytes were removed. A reamer that was 4 mm below the templated size was placed by hand in the acetabulum and it was reamed to centralize the acetabulum. It was then reamed up to 2 under the templated size and fluoroscopy was brought in to confirm the position of the reaming and depth of reaming. I reamed 1 under the anticipated size. A trial cup was placed and noted that it was appropriately sized and fluoroscopy confirmed position and depth. The component was open and inserted without difficulty fluoroscopic imaging was used to confirm that the cup had been adequately seated and was well positioned. The rim was checked for psoas impingement. It was further stabilized with two screws. Neutral poly liner was placed. The cup was tested and noted to be stable. Attention was then directed to the femur. The femur was gently hyperextended additional capsular release was performed as needed in order to allow adequate visualization of the proximal femur with elevation of the femur. Patient was placed in a hyperextended slightly adducted position with maximum external rotation. Box osteotome was used to check for any residual neck as well as sclerotic bone along the trochanter. [place] pepper was placed in the femur. Additional broaching was performed. Canal finder was used to determine the alignment of the canal and position. Size 1 broach was placed. The canal was then appropriately broached up to the templated size as long as there was adequate stability of the broach and serial advancement of the broach without excessive impingement. Specific attention was directed at avoiding varus attempting to direct the distal aspect of the broach more anteriorly and avoiding excessive anteversion. Trial reduction showed acceptable range of motion, good stability, no posterior impingement, worship of leg length and appropriate lateral shuck. I also hyperflexed the hip and checked that there was no impingement anteriorly and there was good stability with flexion, adduction and internal rotation. Marcaine and Exparel were injected. The stem was placed without difficulty. Repeat trial reduction and x-ray showed acceptable overall position, length, and no evidence of the femoral fracture. Final head was placed. Wound was meticulously irrigated with normal saline. The hip was reduced and additional Exparel and Marcaine were injected. The capsule was closed with interrupted nonabsorbable sutures. The fascia of the tensor was closed with interrupted and running Vicryl. No drain was placed. Any tensor fascia alina muscle that appeared to be contused or injured which was a minimal amount was carefully resected. Capsule around the tensor was injected with Exparel and Marcaine. The skin was closed with barbed stitches for the subcutaneous tissue and skin. We also used surgical glue. The wound was dressed sterilely. Brief Betadine soak was also used and was meticulously irrigated with normal saline. Patient was transferred to recovery room in satisfactory condition. Complications: none Post-operative Disposition: Acute Care Plan for aftercare: The patient will be maintained on a standard total hip replacement protocol with weight bearing as tolerated and anterior hip precautions. The patient will receive Aspirin and sequential compression devices for DVT prophylaxis. The patient will be discharged home when safe for the home environment.
[2025-05-20] MEDS: TRANEXAMIC ACID 1,000 MG VIAL 1000 MG INJ ×2 (11:03→12:52)
--- NOTE | 2025-05-20 11:27 | SUR.OPER ---
Supine on padded [place]inton table with bilateral legs secured in padded positioning boots and suspended in positioning spars, operative leg in traction per surgeon. Head on one pillow. Arm on non-operative side secured on padded armboard <90 degrees abduction. Arm on operative side padded and resting across chest then secured with tape over sheet. Padded perineal post in place per surgeon. Surgeon in room to assist with positioning. Final position approved by surgeon. All pressure points padded and covered.
[2025-05-20] MEDS: BUPivacaine 0.25% W/ EPI (PF) 30 ML VIAL 60 ML INJ (11:53)
[2025-05-20] MEDS: SCOPOLAMINE 1 PATCH TOP (13:38)
[2025-05-20] MEDS: ONDANSETRON 4 MG/2 ML INJ IV (13:39)
[2025-05-20] MEDS: FAMOTIDINE 20 MG/2 ML VIAL IV (13:52)
[2025-05-20] MEDS: ACETAMINOPHEN 325 MG TABLET 650 MG PO ×2 (14:27→21:18)
--- NOTE | 2025-05-20 14:44 | OT.IPNOTE ---
Pt still having numbness in her feet, to check on pt tomorrow for OT eval.
[2025-05-20] MEDS: CARBOXYMETHYLCELLULOSE DROPS 1 DROPS EYE-BOTH (15:09)
[2025-05-20] MEDS: LACTATED RINGERS 1,000 ML 100 ML IV (16:18)
[2025-05-20] MEDS: GABAPENTIN 300 MG CAPSULE PO (21:14)
[2025-05-20] MEDS: ATORVASTATIN 20 MG TABLET PO (21:14)
[2025-05-20] MEDS: ASPIRIN EC 81 MG TABLET PO (21:14)
[2025-05-20] MEDS: DOCUSATE 100 MG CAPSULE PO (21:14)
[2025-05-21 05:49] LABS: Hematocrit 35.9 % (36-46); Hemoglobin 12.0 g/dL (12.0-16.0)
[2025-05-21] MEDS: LEVOTHYROXINE 75 MCG TABLET PO (06:18)
[2025-05-21] MEDS: ASPIRIN EC 81 MG TABLET PO (07:44)
[2025-05-21] MEDS: ACETAMINOPHEN 325 MG TABLET 650 MG PO (07:45)
--- NOTE | 2025-05-21 07:46 | PM.DS.1 ---
History of Present Illness History of Present Illness Time Patient Seen: 07:46 Chief complaint: Left Total Hip Arthroplasty/Anterior Approach Narrative: She was taken the operating room for a anterior left total hip arthroplasty. She tolerated the procedure well. Discharge Providers Provider Discharge Date: 05/21/25 Primary care physician: Omari Meyer MD Consults: 05/20/25 06:00 Consult to Anesthesiology Routine Comment: Consulting Provider: Anesthesiologist Reason for consultation: Regional block for post operative pain control Has provider been notified: No 05/20/25 14:04 Consult to Discharge Planning Routine Comment: Consult to Occupational Therapy Evaluate & Treat Comment: Physician Instructions: Evaluate and treat Consult to Physical Therapy Evaluate & Treat Comment: Physician Instructions: post op HORACE protocol 05/20/25 14:45 Consult to Pharmacy Routine Comment: at discharge Discharge provider: Julieta Parrish MD Summary Hospital Course Discharge Diagnosis: Left hip osteoarthritis. Left total hip arthroplasty. Hospital Course: Patient was taken to the operating room the underwent a left total hip arthroplasty. She tolerated the procedure well. She was mobilized with physical therapy. She was stable for discharge. Status at Discharge Cognitive/behavioral status at discharge: oriented Functional status at discharge: uses cane/walker Overall status at discharge: patient is progressing back to baseline Exam Vital Signs (past 8 hours): Oxygen Delivery Method Room Air Oxygen Flow Rate 0 Narrative Exam Narrative: She was alert she is oriented she is moving her feet and ankles without difficulty her calves are soft bilaterally, she was neurologically intact her dressings dry Objective Labs 05/21/25 05:22 Labs: Laboratory Results - last 24 hr 05/21/25 05:22 Hgb 12.0 Hct 35.9 L PFS Medical History (Updated 05/12/25 @ 10:20 by Trinh Iverson RN) History of COVID-19 (2023) Anesthesia complication Bradycardia [place] of foot Seasonal allergic rhinitis due to fungal spores Vaccine counseling Depression screen Other intra-abdominal and pelvic swelling, mass and lump Encounter for medication monitoring Vaginal bleeding, abnormal Family history of malignant neoplasm of breast Atrophic vaginitis Hearing loss Colitis Thyroid nodule Hypothyroidism (11/12/14) Surgical History (Updated 05/12/25 @ 10:16 by Trinh Iverson RN) History of dilation and curettage Hx of appendectomy Hx of LASIK Hx of discectomy (~2021) History of total right knee replacement (~2014) H/O tubal ligation S/P appendectomy S/P T&A (status post tonsillectomy and adenoidectomy) Family History (Updated 09/19/24 @ 10:48 by Omari Meyer MD) Father Cirrhosis Mother Cancer Brother Suicide Sister Diabetes mellitus Hypertension Grandfather Stroke Grandmother Cancer Other Lumbar radiculopathy Social History household members: none Smoking Status: Never smoker alcohol intake: current Discharge Assessment & Plan Assessment and Plan Assessment: Doing well after a left total hip arthroplasty. Plan of Treatment: Discharge to home. Discharge Plan Discharge Plan Patient Disposition: Home Discharge orders & Medications Discharge Orders: Discharge (Order); Ordered 05/21/25 Ordered By: Julieta Parrish Prescriptions: New polyethylene glycol 3350 [Gavilax] 17 gram Powder In Packet 17 gm PO DAILY PRN (Reason: Constipation) Qty: 30 0RF aspirin 81 mg Tablet,Delayed Release (Dr/Ec) 81 mg PO BID Qty: 90 0RF ibuprofen 400 mg Tablet 400 mg PO Q4H PRN (Reason: Pain, Mild (1-3)) Qty: 90 0RF oxycodone 5 mg Tablet 5 mg PO Q3H PRN (Reason: Pain, Moderate (4-6)) Qty: 30 0RF Continued mupirocin calcium 2 % cream 1 applic topical BID Qty: 30 0RF rosuvastatin 10 mg tablet 10 mg PO QPM Qty: 90 1RF clindamycin HCl 300 mg capsule See Rx Instructions PO BID Qty: 2 0RF Rx Instructions: orally twice a day; Take 1 capsule 2 hours before dental work and another capsule 1 hour before dental work spironolactone 25 mg tablet 25 mg PO DAILY Qty: 90 0RF levothyroxine 75 mcg tablet 75 mcg PO DAILY Qty: 90 1RF cetirizine [All Day Allergy (cetirizine)] 10 mg tablet 10 mg PO DAILY gabapentin 300 mg capsule 300 mg PO BEDTIME acetaminophen 650 mg tablet extended release 650 mg PO DAILY Follow up/Referrals: Omari Meyer MD [Primary Care Provider, Family Practice] Diet/Activity/Treatments Diet: Diet as Tolerated Activity: Ambulate multiple times a day. Use a cane or walker as needed. Full weight on leg. Cold/Heat Therapy: Use ice multiple times a day. Skin/Wound/Dressing Care Skin care: Leave dressing on. Okay to shower Report to your healthcare provider any signs of infection, such as:: chills, fever, night sweats, unusual drainage and unusual redness Dressing: May shower. Leave dressing in place until follow up in office. No bathing or otherwise soaking incision. Call the office if the dressing becomes saturated inside. Visit Report/Discharge Packet Instructions: DI for Hip Replacement Stand Alone Forms: Patient Portal/API, Surgery Discharge Print Language: Tu[place] Discharge Data Primary Care Provider: Omari Meyer Attending Provider: Julieta Parrish
[2025-05-21] MEDS: LORATADINE 10 MG TABLET PO (08:08)
[2025-05-21 08:52] VITALS: BP 108/86; PULSE 66; RESP 18; TEMP 35.6; O2SAT 97
--- NOTE | 2025-05-21 09:40 | OT.IP.EVAL ---
Current Diagnoses Unilateral primary osteoarthritis, left hip (05/20/25) Surgery Performed Operation Date: 05/20/25 10:45 Actual Procedures p Total Hip Arthroplasty/Anterior Approach(Left) - Julieta Parrish MD Past Medical History (Last Updated 05/12/25 @ 10:20 by Trinh Iverson, RN) Anesthesia complication Atrophic vaginitis Bradycardia Colitis [place] of foot Depression screen Encounter for medication monitoring Family history of malignant neoplasm of breast Hearing loss History of COVID-19 (2023) Hypothyroidism (11/12/14) Other intra-abdominal and pelvic swelling, mass and lump Seasonal allergic rhinitis due to fungal spores Thyroid nodule Vaccine counseling Vaginal bleeding, abnormal Surgical History (Last Updated 05/12/25 @ 10:16 by Trinh Iverson, OMAR) H/O tubal ligation History of dilation and curettage History of total right knee replacement (~2014) Hx of appendectomy Hx of discectomy (~2021) Hx of LASIK S/P appendectomy S/P T&A (status post tonsillectomy and adenoidectomy) Occupational Therapy Inpatient Evaluation/Re-Eval M1 PT/OT-IP Prior Functional Status Start: 05/21/25 10:44 Freq: NEEDED Status: Active Protocol: Document 05/21/25 10:44 [facility] (Rec: 05/21/25 10:59 [facility] Desktop) Medical Review Prior Functional Status Communication I Mobility and Gait I Activities of Daily I Living and IADL's Social History Household Members none Living Arrangements House Number of Floors ( Two Floors Floors) Number of Stairs To 12 steps with right rail to enter the house. Pt to stay Enter/Railing? on the main floor initially. Home Environment High Toilet,Tub/Shower Home Equipment Front Wheel Walker,Bedside Commode,Shower Seat without Backrest,Hand Held Shower M2 OT-IP Current Condition Start: 05/21/25 10:44 Freq: Status: Active Protocol: Document 05/21/25 10:44 [facility] (Rec: 05/21/25 10:59 [facility] Desktop) Occupational Therapy Current Condition Current Condition Evaluation Date 05/21/25 Treatment Diagnosis S/P L HORACE Diagnosis Onset Date 05/20/25 Post Operative Precautions Other Precautions NO Hyperextension for left hip Weight Bearing Status Weight Bearing Weight Bear as Tolerated Status M3 OT- IP Subjective and Pain Start: 05/21/25 10:44 Freq: Status: Active Protocol: Document 05/21/25 10:44 [facility] (Rec: 05/21/25 10:59 [facility] Desktop) OT- Subjective Occupational Therapy Visit Type Type Initial Evaluation Visit Start Time 09:15 Visit Stop Time 09:40 Occupational Therapy Visit Comments Patient Comments Pt's friend present at end of OT session. Patient/Caregiver TO go home. Goals OT Pain Assessment Pain When Pain Assessed During Mobility Pain Present Pain Present Pain Reported Location Left Hip Intensity 8 Scale Used Numeric (0 - 10) M4 OT- IP ADL's Start: 05/21/25 10:44 Freq: Status: Active Protocol: Document 05/21/25 10:44 [facility] (Rec: 05/21/25 10:59 [facility] Desktop) OT IGY-Pyku-Jaicyul General Evaluation Self-Feeding Ability Independent OT ADL-Grooming Comments OT Grooming Comments Pt states to do at home. OT ADL-Oral Care Comments Oral Care Comments Pt states to do at home. OT ADL-Dressing Comments OT Dressing Comments Pt already dressed and per pt, nursing aid assisted with sock and shoes. Spoke of LB dressing equipment to pt. Educated to dress her LLE first and take out last. OT ADL-Toileting Comments OT Toileting Pt states has a BSC and plans on emptying it while Comments balancing on her FWW. Suggested to let her friends assist and when more stable possible to use 4ww. OT ADL-Bathing Comments OT Bathing Comments Best to have assist for showering needs. Pt states to just sponge off. Spoke of care of bandage for showering needs. M5 OT- IP IADL's Start: 05/21/25 10:44 Freq: Status: Active Protocol: Document 05/21/25 10:44 [facility] (Rec: 05/21/25 10:59 [facility] Desktop) OT-Instrumental Activities of Daily Living Home Safety Awareness Awareness of Need Decreased Awareness for Assistance at Home Home Safety Comments Pt is a bit groggy and slow to respond to questions at this time. Medication Management Medication Best to have supervision. Management Comments Money Management Money Management Best to have assist initially. Comments Meal Preparation Meal Preparation Pt will need assist. Comments Dope House Operator Helper Dope House Operator Helper Pt will need assist. Comments M6 OT- IP Functional Cognition Start: 05/21/25 10:44 Freq: Status: Active Protocol: Document 05/21/25 10:44 [facility] (Rec: 05/21/25 10:59 [facility] Desktop) Cognitive Factors Limiting Selfcare Function Cognitive Ability Level of Alertness Alert,Confusional State Patient Orientation Name,Place,Situation Attention Span Capable of Focused Attention,Capable of Sustained Ability Attention,Unable to Sustain Attention Ability to Follow Able to Follow One Step Commands with Increased Time, Commands Able to Follow One Step Commands with Repetition Problem Solving Needs Assist to Identify Solutions Ability Cognitive Comments Cognitive Assessment Pt slow to respond to questions. Pt also very INUPIAT. Comments OT- Vision and Hearing OT- Hearing Assessment OT- Hearing Hearing Impaired,Use of Hearing Aids Assessment M7 OT- IP Mobility and Balance Start: 05/21/25 10:44 Freq: Status: Active Protocol: Document 05/21/25 10:44 [facility] (Rec: 05/21/25 10:59 [facility] Desktop) OT- Bed Mobility Assessment Supine to Sit Supine to Sit Assist Minimal Assistance Sit to Supine Sit to Supine Assist Minimal Assistance OT-Transfer Assessment Sit to and From Stand Sit to and from Contact Guard Assistance Stand Transfers Transfer Ability Standby Assistance Technique Transfer Destination Bed,Chair Transfer Technique Stand Step Pivot Devices Transfer Assistive Gait Belt,Front Wheeled Walker Devices Comments Mobility Comments MARY ANNE to assist to help get her LLE into and out of the bed. Went over various techniques. Once on her feet with FWW , pt is SBA. Suggested to put tennis ball or slides on the back of the FWW for safety. OT- Balance Assessment Sitting Balance and Reactions Static Sitting Normal Balance Ability Dynamic Sitting Good Balance Ability Standing Balance and Reactions Static Standing Good Balance Ability Dynamic Standing Fair Balance Ability M8 OT- IP Objective Assessments Start: 05/21/25 10:44 Freq: Status: Active Protocol: Document 05/21/25 10:44 [facility] (Rec: 05/21/25 10:59 [facility] Desktop) OT Gross Range of Motion Upper Extremity Range of Motion Assessment Within Functional Limits OT Strength Upper Extremity Strength Assessment Within Functional Limits M9 OT- IP Assessment and Plan Start: 05/21/25 10:44 Freq: Status: Active Protocol: Document 05/21/25 10:44 [facility] (Rec: 05/21/25 10:59 [facility] Desktop) OT Summary Assessment and Plan Potential Rehabilitation Good Potential Analytic Complexity Low at Evaluation Summary OT Impairments Pain,Balance,Functional Cognition,Functional Mobility, Dressing,Toileting,Bathing,Toilet Transfers,Shower Transfers Progress Towards Slow Progress due to Pain,Slow Progress due to Goals Cognition Assessment Summary Pt low complexity and main barriers are pain, steps, and a bit groggy and needing increased time to process commands for safety and for ADL and mobility needs. Pt states to have a friend stay with her initially and go to outpt PT. Pt would benefit from LB dressing equipment and assist at home especially for showers, emptying the BSC, and for IADL needs. Also emphasized of having her pets in a separate room at night to prevent risk of falling. Goals Self-Feeding Goal Independent Grooming Goal Independent Dressing Goal Independent,Agriculture Scientist,Sock Aid Toileting Goal Independent Bathing Goal Independent Toilet Transfer Goal Independent Shower Transfer Goal Independent Days to Meet Goals 7 Frequency of Treatment Other frequency 7x/week Treatment Plan OT Treatment Plan ADL Training,Functional Cognition Training,Functional Mobility,Patient/Family Education,Discharge Planning Other Treatment If pt still here, may benefit from SLUMS. Recommendations and Next Treatment Focus Discharge Recommendations OT Discharge Home with 24/ Assist Available,Outpatient PT Recommendations Home Equipment Needs LB dressing equipment Transportation Needs Private Vehicle at Discharge
--- NOTE | 2025-05-21 10:00 | PT.IIE ---
Current Diagnoses Unilateral primary osteoarthritis, left hip (05/20/25) Surgery Performed Operation Date: 05/20/25 10:45 Actual Procedures p Total Hip Arthroplasty/Anterior Approach(Left) - Julieta Parrish MD Surgical History (Last Updated 05/12/25 @ 10:16 by Trinh Iverson, RN) H/O tubal ligation History of dilation and curettage History of total right knee replacement (~2014) Hx of appendectomy Hx of discectomy (~2021) Hx of LASIK S/P appendectomy S/P T&A (status post tonsillectomy and adenoidectomy) Medical History (Last Updated 05/12/25 @ 10:20 by Trinh Iverson, OMAR) Anesthesia complication Atrophic vaginitis Bradycardia Colitis [place] of foot Depression screen Encounter for medication monitoring Family history of malignant neoplasm of breast Hearing loss History of COVID-19 (2023) Hypothyroidism (11/12/14) Other intra-abdominal and pelvic swelling, mass and lump Seasonal allergic rhinitis due to fungal spores Thyroid nodule Vaccine counseling Vaginal bleeding, abnormal Physical Therapy Inpatient Evaluation/Re-Eval M1 PT/OT-IP Prior Functional Status Start: 05/21/25 10:44 Freq: NEEDED Status: Discharge Protocol: Document 05/21/25 10:44 [facility] (Rec: 05/21/25 10:59 [facility] Desktop) Medical Review Prior Functional Status Communication I Mobility and Gait I Activities of Daily I Living and IADL's Social History Household Members none Living Arrangements House Number of Floors ( Two Floors Floors) Number of Stairs To 12 steps with right rail to enter the house. Pt to stay Enter/Railing? on the main intially. Home Environment High Toilet,Tub/Shower Home Equipment Front Wheel Walker,Bedside Commode,Shower Seat without Backrest,Hand Held Shower M1 PT/OT-IP Prior Functional Status Start: 05/21/25 12:57 Freq: NEEDED Status: Active Protocol: Document 05/21/25 10:00 [facility] (Rec: 05/21/25 13:10 AB [id number]) Medical Review Prior Functional Status Medical History Yes Reviewed Communication able to make needs known Mobility and Gait pt stated that she was independent with all mobilities and ambulation without AD Social History Household Members none Living Arrangements House Number of Floors ( Two Floors Floors) Number of Stairs To pt will stay on main level of the house Enter/Railing? has 12 steps with right rail + L wall ascending to enter Home Environment High Toilet,Tub/Shower Home Equipment Front Wheel Walker,Crutches,Bedside Commode,Shower Seat without Backrest,Hand Held Shower,Grab Bars Near Toilet Additional Social stated that her friend might be able to stay with her History Comment for a few days to assist; a neighbor can also come in to assist pt M2 PT-IP Current Condition Start: 05/21/25 12:57 Freq: NEEDED Status: Active Protocol: Document 05/21/25 10:00 [facility] (Rec: 05/21/25 13:10 AB [id number]) Physical Therapy Current Condition Current Condition Evaluation Date 05/21/25 Treatment Diagnosis s/p L HORACE anterior; difficulty in walking Onset Date 05/20/25 M3 PT-IP Subjective Start: 05/21/25 12:57 Freq: NEEDED Status: Active Protocol: Document 05/21/25 10:00 [facility] (Rec: 05/21/25 13:10 AB [id number]) Subjective Physical Therapy Visit Type Type Initial Evaluation Visit Start Time 10:00 Visit Stop Time 10:45 Number of GENERAL ACCOUNTANT Visits 0 Physical Therapy Visit Comments Patient Comments agreeable to do PT Therapy Pain Assessment Pain When Pain Assessed At Rest Pain Present Pain Present Pain Reported Location Left Hip Intensity 0 Scale Used increases to 8/10 with mobility Pain Behaviors Facial Grimacing,Guarding,Wincing Pain Management Apply Cold,Distraction,Modification of Treatment,Re- Techniques positioning,Timing of Activity with Medications M4 PT-IP Mobility and Gait Start: 05/21/25 12:57 Freq: NEEDED Status: Active Protocol: Document 05/21/25 10:00 [facility] (Rec: 05/21/25 13:10 [id number]) PT-Bed Mobility Assessment Supine to Sit Supine to Sit Standby Assistance Sit to Supine Sit to Supine Standby Assistance PT-Transfer Assessment Sit to and From Stand Sit to and from Standby Assistance,1 Person Assistance,Use of Upper Stand Extremities Equipment Transfer Assistive Gait Belt,Front Wheeled Walker Device Orthotic/Prosthetic No Devices or Brace: Transfers Transfer Destination Bed,Chair Transfer Technique ambulated Transfer Ability Level of Assist Standby Assistance,1 Person Assistance,Use of Upper Extremities Comments Mobility Comments pt sitting on the chair and agreeable to do PT. obtained PLOF and home set up. pt's neighbor in room with pt. pt has memory issues and slow to respond to questions and instructions. educated pt on L hip anterior precautions. completed sit to stand SBA and ambulated to EOB using fWW SBA. completed sit<>supine SBA. sit to stand SBA and ambulated in the hallway ~ 50 ft using FWW SBA. stair climbing training: educated pt and neighbor on how to do stairs. pt completed up/down steps CGA using R rail and hand only against L rail for support. pt ambulated back to her room using FWW ~ 100 ft SBA. pt sat on the chair. call light and table placed within reach. left pt with neighbor. Gait Assessment Gait Gait Assistance Standby Assistance Required: Distance (Feet) 100 Able to Maintain Yes Weight Bearing Status During Gait Assistive Devices Assistive Device Gait Belt,Front Wheeled Walker Orthotic/Prosthetic No Devices or Brace: Gait Deviations General Gait Pattern Antalgic,Decreased Feet Clearance Factors Limiting Gait Function Factors Limiting Decreased Activity Tolerance,Decreased Strength, Gait Function Difficulty Following Directions,Limited Range of Motion ,Pain,Poor Balance,Poor Safety Awareness Stair Climbing Assessment Evaluation Level of Assist On Contact Guard Assistance,1 Person Assistance Stairs Devices Stair Climbing Left Railing,Right Railing Assistive Devices Technique/Endurance Stair Climbing Ascend and Descend Direction Stair Climbing Step to Step Technique Number of Steps 3 Climbed Query Text: Stair Climbing Set # 1 Repetitions (reps) PT-Balance Assessment Sitting Balance and Reactions Static Sitting Normal Balance Ability Dynamic Sitting Good Balance Ability Standing Balance and Reactions Static Standing Good Balance Ability Dynamic Standing Fair Balance Ability Device Used FWW M5 PT-IP Objective Assessments Start: 05/21/25 12:57 Freq: NEEDED Status: Active Protocol: Document 05/21/25 10:00 [facility] (Rec: 05/21/25 13:10 AB [id number]) Orientation Orientation/Cognition Level of Alertness Alert Orientation Name,Place,Situation Language Function Hard of Hearing Ability Safety Awareness Decreased Safety Awareness Memory Description Short Term Impaired Gross Range of Motion Lower Extremity ROM Assessment Within Functional Limits Strength Lower Extremity Strength Assessment Left Impaired Hip 3-/5 Knee 4-/5 Muscle Tone Muscle Tone WNL Yes M6 PT-IP Treatment Start: 05/21/25 12:57 Freq: NEEDED Status: Active Protocol: Document 05/21/25 10:00 [facility] (Rec: 05/21/25 13:10 [id number]) Physical Therapy Treatment Education Education Provided Precautions,Weight Bearing Status,Safety M7 PT-IP Assessment and Plan Start: 05/21/25 12:57 Freq: NEEDED Status: Active Protocol: Document 05/21/25 10:00 [facility] (Rec: 05/21/25 13:10 [id number]) PT Summary Assessment and Plan Potential Rehabilitation Fair Potential Status of Condition Evolving at Evaluation Summary Impairments Pain,ROM,Strength,Balance,Coordination,Sensation,Tone, Cognition,Bed Mobility,Transfers,Gait,Activity Tolerance Assessment Summary pt is a 74 y/o F s/p L HORACE anterior approach POD 1. pt with L hip anterior precautions and is WBAT. pt requiring SBA with mobility using FWW and cues provided for safety. pt plans to go home and a friend/neighbor can assist. pt has outpt PT set up. Goals Bed Mobility Goal Independent Transfer Goal Independent,Front Wheeled Walker Gait Goal Independent,Front Wheel Walker Gait Distance 200 Other Goals up/down 12 steps R rail ascending mod I Days to Meet Goals 5 Frequency of Treatment Frequency Of Twice a Day Treatment Treatment Plan Physical Therapy Bed Mobility Training,Transfer Training,Gait Training, Treatment Plan Therapeutic Exercise,Balance Retraining,Post Op Education,Discharge Planning,Hot or Cold Pack, Neuromuscular Re-ed,Coordination Retraining,Manual Therapy Precautions Anterior Hip No Hip Extension,No Hip External Rotation Precautions Weight Bearing Status Weight Bearing Weight Bear as Tolerated Status Allowed Weight LLE WBAT Bearing Amount ( enter % or #) (%) Recommendations To Nursing Amount of Assist 1 Person Assist Needed Discharge Recommendations PT Discharge Home with Assistance,Outpatient PT Recommendations Transportation Needs Private Vehicle at Discharge - PT assist 1
[2025-05-21] MEDS: IBUPROFEN 400 MG TABLET PO (10:18)
--- NOTE | 2025-05-21 12:21 | PC.NURSE ---
Pt is dressed and ready for discharge home with friend. IV was removed. D/C instructions reviewed with Pt - encouraged Pt to drink fluids to prevent constipation or dehydration, reviewed stroke education, discussed s/s of infection, following hip precautions and follow up as scheduled. Pt denied further questions and was taken out via w/c by PET TRAINER to POV with friend and all belongings.
--- NOTE | 2025-05-21 13:00 | CM.DANOTE ---
DCP Assessment note pt is a 74yo F POD1 left total hip with Dr. Francois GARCIA reviewed EMR. per RN pt OOB with nursing, able to dress self and move well, has plans for friend to care for her in home at dc (lives alone indep at baseline) and no obvious needs. per chart [place] on [place]. Pt left prior to being seen by this LANGUAGE TEACHER per OT note safe for home with friend, has necessary DME for post op except recommended lower grab bar for dressing. P: dc home today with friend support and OP f/u, no identified safety barriers to dc home identified at this time. will continue to follow as needed for DCP coordinatin RADHA Haji Discharge Planning/Care Management CM Discharge Assessment Start: 05/20/25 08:43 Freq: Status: Discharge Protocol: Document 05/21/25 12:59 SL (Rec: 05/21/25 13:00 SL [id number]) Discharge Planning Assessment Assigned Discharge RADHA Lopez [employer] Zig[employer] Provider Omari Meyer Insurance Medicare,[facility] DPOA/Assigned FriendJamal Designee Name Contact Information [phone] Advance Directives? Yes: POLST Advance Directives Yes on File Prior Living House Arrangements Household Members none Type of Drives own vehicle transporation used prior to admit Independent with ADL Yes 's Is patient alert and Yes oriented? Discharge Plan Home Transportation friend in POV Arrangement Referrals Initiated None needed Review Status In Process Please Provide Date 05/21/25 Initial DC Assessment Was Performed Next Review Type Continued Stay Review Pre-Anesthesia Assessment Start: 05/12/25 09:37 Freq: Status: Discharge Protocol: Document 05/12/25 09:37 CAB (Rec: 05/12/25 10:44 CAB [id number]) Pre-Anesthesia Assessment PAC Comment Phone assess 05/12/25 Preferred Name [facility] Patient Information Phone Assessment Reviewed Via Assessment Completed Patient With Diagnostic Results BMP/CMP,CBC,EKG,Urinalysis Comment Labs/EKG @ 03/12/25 Primary Care Omari Meyer Provider Seen Specialist in Yes Last 12 Months Specialist Seen Asphalt Paving Supervisor,Orthopedist Primary Language Spanish Technical Services Consultant Required No Height 162.56 cm Weight 77.111 kg Body Mass Index (BMI 29.2 ) Hearing Ability Hearing Impaired,Use of Hearing Aid Visual Assist Glasses Barriers to Learning Auditory Hx Anesthesia Yes: PONV-vomited for 3 days following anesthesia Reactions Hx Family Anesthesia No Reaction Hx Malignant No Hyperthermia Hx Blood No Transfusions Anesthesia Review No Requested Founder And Chief Executive Officer No alcohol intake current Alcohol intake holidays/special occasions only frequency Smoking Status Never smoker Substance Use Type [ does not use #R] Pain Present Pain Reported Musculoskeletal Abnormal Gait,Difficulty Walking,Joint Pain Symptoms History of Falling ( No Recent or History of ) Patient is No completely paralyzed or completely immobile Mental Status Oriented to own ability Is patient on oxygen No ? Does patient have No OREILLY/SOB Hx Sleep Apnea No CPAP/BIPAP use not prescribed Currently Taking a No Beta Bisi Can You Climb a No Flight of Stairs Without SOB Hx Chest Pain No Hx SOB No Hx Syncope or No Dizziness Anti-Coagulant No Therapy Has a Asphalt Paving Supervisor Yes: Last visit 07/04/[address] Casas @ [facility] Cardiac Testing Echo @ [facility] 12/27/24 Hx Pacemaker/ICD No Pacemaker Rep No Required? Cardiac Clearance No Received Comment Cardiac records scanned and in surgery folder Dysphagia No Gastrointestinal Excessive Flatus Symptoms Bladder Pattern Nocturia Urinary Catheter No Present Hx Urinary Self No Catheterization Diabetes No HgbA1C 5.4 Date 03/12/25 Patient No Lactating No Hx Drug Resistant No Organism Presence of external Yes: Right knee, hearing aids or internal medical devices? Marital Status Lives With none Current Living House Arrangements Number of Floors ( One Floor Floors) Number of Stairs To 12 steps Enter/Railing? Support System Friend(s) Comment 1st post-op night @ local hotel, then home, friends avail to stay w/pt Does the Patient Yes Have Assistance After Surgery Patient Discharge Return Home Plan Description Comment Pt not advised on length of stay per surgeon, lives on [facility] Feels Safe in Yes Current Environment Been Physically Hurt No or Threatened By a Person in Current Environment Do you have thoughts None of harming yourself or others? Are you currently No considering suicide? Do you have a plan No Plan to hurt yourself or others? Do You Have Any No Spiritual Beliefs That May Affect Your HC Choices? Do You Have Any No Cultural Practices That May Affect Your HC Choices? Who Can We Speak to Family, friends About Patient's Care Identifying Code for Declines to issue Release of Patient Information Health Care Proxy/ Halina Casper (good friend) Next of Kin Health Care Proxy [phone] Phone Number Emergency Contact Halina Casper (good friend) Name Emergency Contact [phone] Phone Number Advance Directives? Yes Advance Directives No on File Requested Patient Yes Bring Advanced Directives DOS Power of Physical Science Teacher No PAC Instructions Assistance for 24 hours post-op,Do not shave/clip surgical site,Durable medical equipment,Medications to take/avoid,Nasal antibiotic,No ETOH/petroleum product on skin DOS,NPO,Post-op transportation,Pre-surgical wash,Sturdy shoes/comfortable clothes,Do not bring valuables and remove jewelry
== END 2025-05-21 11:40 | disposition home or self-care (01) ==
LOC: OR 08:09 → AC 08:13
PROVIDERS: PCP Family Medicine; Referring Provider Orthopaedic Surgery; Visit Provider Orthopaedic Surgery
PROC: (CPT 27130; principal; 2025-05-20 10:45)
DX: M16.12 Unilateral primary osteoarthritis, left hip (principal); M70.62 Trochanteric bursitis, left hip; Z96.651 Presence of right artificial knee joint; M51.26 Other intervertebral disc displacement, lumbar region; M25.752 Osteophyte, left hip
CPT/HCPCS: 27130; 36415; 73502; 76000; 85014; 85018; 97116; 97162; 97165; 97530; C1776; A9270; C1713; J0666; J0690; J1100; J2405; J2704; J3010; J3375